=== PATIENT | male | born 1980 | race African-American/Black ===

== ENCOUNTER 2023-08-09 08:56 | Emergency (ER) | payer OTHER, SELFPAY ==
[2023-08-09 09:07] VITALS: BP 169/116; PULSE 76; RESP 20; TEMP 36.4; O2SAT 100
[2023-08-09] MEDS: SODIUM CHLORIDE 0.9% IV 1,000 ML 999 ML IV CONT (10:43)
[2023-08-09 10:46] LABS: Basophils Percent Auto 0.3 % (0.2-1.2); Eosinophils Absolute Auto 0.1 K/mm3 (0-0.3); Eosinophils Percent Auto 1.9 % (0-4.4); Hematocrit 47.3 % (42.0-52.0); Hemoglobin 15.3 g/dL (14.0-18.0); Immature Granulocyte Absolute 0.01 K/mm3 (0.00-0.031); Immature Granulocyte Percent A 0.2 % (0-0.5); Lymphocytes Absolute Auto 2.27 K/mm3 (0.9-3.2); Lymphocytes Percent Auto 38.9 % (18.3-44.2); Mean Corpuscular HGB Conc 32.3 g/dl (32-36); Mean Corpuscular Hemoglobin 27.3 pg (26-34); Mean Corpuscular Volume 84.3 fl (80-100); Mean Platelet Volume 10.1 fl (7.4-10.4); Monocytes Absolute Auto 0.4 K/mm3 (0.1-0.6); Monocytes Percent Auto 7.2 % (2.6-8.5); Neutrophils Percent Auto 51.5 % (45.5-73.1); Platelet Count Result 244 k/mm3 (150-375); Red Blood Count 5.61 M/mm3 (4.6-6.20); Red Cell Distribution Width 13.6 % (11.5-14.5); White Blood Count 5.8 K/mm3 (4.5-10.0)
[2023-08-09 11:23] LABS: Alanine Aminotransferase 29 U/L (6-50); Albumin Level 4.2 g/dL (3.5-5.1); Alkaline Phosphatase 89 U/L (38-126); Anion Gap 3 mmol/L (8-16); Aspartate Amino Transferase 33 U/L (17-59); Bilirubin,Total 0.7 mg/dL (0.2-1.3); Blood Urea Nitrogen 12 mg/dL (9-20); Calcium 9.5 mg/dL (8.4-10.2); Carbon Dioxide 31 mmol/L (22-30); Chloride 104 mmol/L (98-107); Estimated CRCL calculation 134 ml/min; Estimated Glomerular Filt Rate > 60; Glucose 265 mg/dL (65-110); Sodium 138 mmol/L (137-145)
--- NOTE | 2023-08-09 12:12 | ED.GENADULT ---
HPI - General Adult General Chief complaint: Unspecified Stated complaint: med refill Time Seen by Provider: 08/09/23 09:07 History of Present Illness HPI narrative: Pt presents with elevated blod sugar. Pt says he is just about out of his insulin and needs refill. Pt says his girlfriend is trying to get him into her PCP but does not have appointment yet. Pt denies symptoms just wants insulin refilled. Related Data Home Medications Medication Instructions Recorded Confirmed insulin glargine 100 unit/mL unit subcut 08/09/23 subcutaneous cartridge insulin pen,reusable,BT,lispro 08/09/23 08/09/23 Allergies Allergy/AdvReac Type Severity Reaction Status Date / Time No Known Allergies Allergy Verified 08/09/23 09:11 Review of Systems Review of Systems: All systems reviewed & are unremarkable except as noted in HPI and below Exam Const: General: cooperative, healthy appearing, comfortable, no acute distress, well developed and Physically active Orientation/consciousness: patient oriented x3 Limitations: no limitations HENMT: Head: normal to inspection Mouth: Yes moist mucous membranes abnormal Neck: Neck: normal visual inspection and full ROM Resp: Effort & Inspection: normal respiratory effort Auscultation: clear to auscultation bilaterally Cardio: Rate: regular rate Rhythm: regular rhythm GI: Inspection: normal to inspection Auscultation: normal bowel sounds Skin: General skin exam: normal color and no rashes or lesions noted Neuro: General: patient oriented x3 and moves all extremities Cranial nerves: Yes CN's II-XII intact bilaterally Cognition (Neuro): normal cognition Speech: normal speech Extrem: General: normal to inspection Psych: Appearance: grossly normal Mental Status: mental status grossly normal Speech and movement: Normal speech and movement present Affect: normal affect Attitude: cooperative Thought process: Normal thought process present Insight: Good insight present (Psych) Judgement: Good judgement present (Psych) Course Vital Signs Vital signs: Vital Signs Temperature 97.6 F 08/09/23 09:07 Pulse Rate 76 08/09/23 09:07 Respiratory Rate 20 08/09/23 09:07 Blood Pressure 169/116 H 08/09/23 09:07 Pulse Oximetry 100 08/09/23 09:07 Oxygen Delivery Room Air 08/09/23 09:07 Temperature 97.6 F 08/09/23 09:07 Pulse Rate 73 08/09/23 12:57 Respiratory Rate 20 08/09/23 12:57 Blood Pressure 170/97 H 08/09/23 12:57 Pulse Oximetry 99 08/09/23 12:57 Oxygen Delivery Room Air 08/09/23 09:07 Medical Decision Making MDM Narrative Medical decision making narrative: Pt has had mild blood sugar elevation and is nearly out of his insulin and does not have PCP yet. Pt want refill of insulin. will check labs to be sure not in dka or electolye issues or kidney failure then can refill and arrange folow up. labs look ok will send home on insulin and follow up. Vital Signs Vital Signs: Vital Signs Temperature 97.6 F 08/09/23 09:07 Pulse Rate 76 08/09/23 09:07 Respiratory Rate 20 08/09/23 09:07 Blood Pressure 169/116 H 08/09/23 09:07 Pulse Oximetry 100 08/09/23 09:07 Oxygen Delivery Room Air 08/09/23 09:07 Temperature 97.6 F 08/09/23 09:07 Pulse Rate 73 08/09/23 12:57 Respiratory Rate 20 08/09/23 12:57 Blood Pressure 170/97 H 08/09/23 12:57 Pulse Oximetry 99 08/09/23 12:57 Oxygen Delivery Room Air 08/09/23 09:07 Lab Data 08/09/23 10:38 08/09/23 11:04 Labs: Lab Results 08/09/23 08/09/23 08/09/23 Range/Units 10:38 11:04 12:21 WBC 5.8 (4.5-10.0) K/mm3 RBC 5.61 (4.6-6.20) M/mm3 Hgb 15.3 (14.0-18.0) g/dL Hct 47.3 (42.0-52.0) % MCV 84.3 (80-100) fl MCH 27.3 (26-34) pg MCHC 32.3 (32-36) g/dl RDW 13.6 (11.5-14.5) % Plt Count 244 (150-375) k/mm3 MPV 10.1 (7.4-10.4) fl Immature Gran % (Auto) 0.2 (0-0.5) %
[2023-08-09 12:23] LABS: Glucose Point of Care 233 mg/dl (65-105)
--- NOTE | 2023-08-09 12:23 | PC.NURSE ---
BG taken at this time, result was 233
[2023-08-09 12:57] VITALS: BP 170/97; PULSE 73; RESP 20; O2SAT 99
== END 2023-08-09 13:02 | disposition home or self-care (01) ==
PROVIDERS: Emergency Provider Emergency Medicine; Referring Provider Emergency Medicine
DX: E11.65 Type 2 diabetes mellitus with hyperglycemia (principal); Z79.4 Long term (current) use of insulin
CPT/HCPCS: 36415; 80053; 82948; 85025; 96360; 99283; J7030

== ENCOUNTER 2024-06-06 16:03 | Inpatient (IN) | payer OTHER, SELFPAY ==
--- NOTE | ~2024-06-06 | CT_ITS ---
EXAMINATION: CTA brain carotid DATE: 06/06/2024 18:53 [employer] INDICATION: Dizziness. Gait disturbance. TECHNIQUE: Computed tomographic angiography (CTA) of the head was performed with 100 mL Omnipaque-350 intravenous contrast. CTA of the neck was performed with intravenous contrast. The dose-length produ ct was 1257.44 mGy-cm. Maximum intensity projection and volume rendered 3D-reconstructions were creat ed by the technologist on a separate workstation. COMPARISON: CT dated 06/06/2024 FINDINGS: HEAD CTA: The anterior, middle and posterior cerebral arteries are symmetric. No evidence for signifi cant stenosis, occlusion or aneurysm. No vascular anomalies are identified. NECK CTA: Visualized aspects of the aorta are unremarkable. Great vessels are intact without evidence for significant stenosis. The internal and external carotid arteries are within normal limits withou t significant stenosis. Thyroid gland is unremarkable. No significant thoracic lymphadenopathy. Airwa y is patent. Visualized aspects of the lung parenchyma are unremarkable. There is 0% stenosis of the proximal right internal carotid artery relative to normal distal artery l umen diameter (NASCET criteria). There is 0% stenosis of the proximal left internal carotid artery re lative to normal distal artery lumen diameter. IMPRESSION: 1: No significant vascular abnormality of the head or neck. Reviewed, dictated and finalized at location A. [employer]ING LEAD OPERATOR
--- NOTE | ~2024-06-06 | CT_ITS ---
EXAMINATION: CT BRAIN W/O DATE: 06/06/2024 17:28 INDICATION: Headache TECHNIQUE: Computed tomography (CT) of the head was performed without intravenous contrast. The dose- length product was 681.00 mGy-cm. CORD dose COMPARISON: No prior studies for comparison. FINDINGS: Normal brain parenchymal volume for age. Normal hope-white differentiation. No acute intrac ranial hemorrhage, infarction, mass or mass effect. No ventriculomegaly or midline shift. Midline sagittal images demonstrate a normal corpus callosum, c raniovertebral junction and sella turcica. Basilar cisterns are patent. Paranasal sinuses and mastoids are pneumatized. No depressed skull fractures. IMPRESSION: 1. No acute intracranial abnormality. Reviewed, dictated and finalized at location A. CTURAL ENGINEER
--- NOTE | ~2024-06-06 | XR_ITS ---
XR chest 2V Ordering provider: Damon Barrios MD History: 44 years Male with . weakness . Comparison: None. FINDINGS: MEDIASTINUM: The cardiac silhouette is not enlarged. LUNGS: No infiltrates, effusions or pneumothorax. OTHER: No free air under the diaphragm. IMPRESSION: No acute cardiopulmonary pathology. Reviewed, dictated and finalized at location A. ADJUSTER
[2024-06-06 16:19] VITALS: BP 140/106; PULSE 99; RESP 18; TEMP 36.8; O2SAT 100
[2024-06-06 16:24] LABS: Glucose Point of Care 283 mg/dl (65-105)
--- NOTE | 2024-06-06 16:29 | ECG_ITS ---
Test Date: 2024-06-06 16:34:40 Measurements Intervals [place] Rate: 100 P: 83 SC: 155 QRS: -24 QRSD: 87 T: 29 QT: 314 QTc: 405 Interpretive Statements SINUS TACHYCARDIA POSSIBLE LEFT ATRIAL ENLARGEMENT [-0.1mV P WAVE IN V1/V2] BORDERLINE LEFT AXIS DEVIATION [QRS AXIS < -20] NONSPECIFIC ST AND T WAVE ABNORMALITY No previous ECG available for comparison Electronically Signed On 06-07-2024 14:24:41 [employer]PUT[employer]IST by Kimberli Orellana M.D.
--- NOTE | 2024-06-06 16:42 | ED.WEAKNESS ---
HPI - Weakness General Chief complaint: Weakness <Huma AnthonyNoel Robin CUSTOMER SUPPORT PROFESSIONAL - Last Filed: 06/06/24 16:48> Stated complaint: WEAKNESS, HX OF DIABETES <Huma Alexandria Robin APRN - Last Filed: 06/06/24 16:48> Time Seen by Provider: 06/06/24 16:30 <Huma Ibrahim Lobito CUSTOMER SUPPORT PROFESSIONAL - Last Filed: 06/06/24 16:48> Focused HPI: Patient is an skin [place] male who presents to the ER with complaints of weakness, falls x3, severe headache, shortness breath, and vomiting. He reports symptoms started about 1 p.m. today. Patient reports he feels weak which caused him to fall 3 times. He endorses a history of diabetes and hypertension. Patient wears a Dexcom and reports his glucose is in the 230s currently. He denies any recent fevers, abdominal pain, urinary symptoms. GENERAL: Well-appearing, well-nourished, and in no acute distress. HEAD: Normocephalic, atraumatic. CHEST: Clear to auscultation. ?No respiratory distress. HEART: Regular rate and rhythm.? NEURO: ?Alert and oriented x3. Patient screened in triage and initial orders placed.? ?Additional care and disposition to be based upon?diagnostic testing and treatment. <Huma AnthonyNoel Robin CUSTOMER SUPPORT PROFESSIONAL - Last Filed: 06/06/24 16:48> Focused HPI: Patient is an male who presents to the ER with complaints of weakness, falls x3, severe headache, and vomiting. He reports symptoms started about 1 p.m. today. Patient reports he feels weak which caused him to fall 3 times. He endorses a history of diabetes and hypertension. Patient wears a Dexcom and reports his glucose is in the 230s currently. He denies any recent fevers, abdominal pain, urinary symptoms. GENERAL: Well-appearing, well-nourished, and in no acute distress. HEAD: Normocephalic, atraumatic. CHEST: Clear to auscultation. ?No respiratory distress. HEART: Regular rate and rhythm.? NEURO: ?Alert and oriented x3. Patient screened in triage and initial orders placed.? ?Additional care and disposition to be based upon?diagnostic testing and treatment. <Rica Wyatt PA-C - Last Filed: 06/06/24 21:23> Related Data Allergies/Adverse reactions: Allergies Allergy/AdvReac Type Severity Reaction Status Date / Time No Known Allergies Allergy Verified 06/04/24 11:19 <Huma Robin APRN - Last Filed: 06/06/24 16:48> Review of Systems Review of Systems: CONSTITUTIONAL: Denies fever EYES: Denies visual changes CARDIOVASCULAR: Denies chest pain or edema. RESPIRATORY: Denies dyspnea. GASTROINTESTINAL: Reports vomiting NEUROLOGIC: Reports headache. Denies numbness, or weakness. <Rica Wyatt PA-C - Last Filed: 06/06/24 21:23> All systems reviewed & are unremarkable except as noted in HPI and below <Rica Wyatt PA-C - Last Filed: 06/06/24 21:23> PMFSH Past Medical History Medical History: Medical History (Updated 06/06/24 @ 21:15 by Rica Wyatt PA-C) History of hyperlipidemia History of hypertension History of diabetes mellitus <Huma Robin APRN - Last Filed: 06/06/24 16:48> Family History Family History: Family History (Updated 06/04/24 @ 11:06 by Raina Kerr CMA) Sibling Hypertension Renal disease Father Cerebrovascular accident Diabetes mellitus Hypertension Mother Diabetes mellitus Hypertension <Huma Robin APRN - Last Filed: 06/06/24 16:48> Social History Social History: Social History (Updated 06/04/24 @ 11:18 by Lennie Miranda MA) Smoking status: Never smoker Alcohol intake: current Substance use: never Do You Feel Safe in your Home?: Yes Lack of Transportation: No Lack of Food: Sometimes True Current Housing: I Have Housing Concerned About Future Housing: No Difficulty Paying Gas/Electric Bills: No Difficulty Paying for Meds: No Currently Unemployed: YES Education: Decline to Answer Difficulty w/ Childcare or Family Care: No Gender identity (if verbalized by the patient): Male <Huma Robin APRN - Last Filed: 06/06/24 16:48> Exam Narrative: GENERAL: Well-appearing, well-nourished, and in no acute distress. HEAD: Normocephalic, atraumatic. EYES: PERRLA and EOMI. ENT: Nares clear, no rhinorrhea or epistaxis. Mucous membranes moist. Oropharynx without tonsillar hypertrophy exudate or other lesions. Bilateral TMs pearly hope non-bulging NECK: Supple. No adenopathy or masses. No JVD CHEST: Clear to auscultation. No respiratory distress. No wheezes rales or rhonchi HEART: Regular rate and rhythm. No murmur heard. Normal peripheral pulses. EXTREMITIES: Normal range of motion. No edema. Strength equal in bilateral upper and lower extremities (5/5) SKIN: Warm, dry, no rash. NEURO: No focal deficits. Alert and oriented x3. Cranial nerves 2-12 grossly intact. Normal [id number] PSYCH: Normal mood and affect <Rica Wyatt PA-C - Last Filed: 06/06/24 21:23> Course Course Emergency Course: Patient updated on his workup. Does endorse some continued dizziness, headache. Will be admitted for further observation <SUSAN Parson Last Filed: 06/06/24 21:23> Consultations Consultation #1: Spoke with hospitalist about patient and workup who accepts admission. Would like patient started on IV antibiotics for possible UTI <SUSAN Parson Last Filed: 06/06/24 21:23> Date: 06/06/24 <SUSAN Parson Last Filed: 06/06/24 21:23> Vital Signs Vital signs: Vital Signs Temperature 98.3 F 06/06/24 16:19 Pulse Rate 99 06/06/24 16:19 Respiratory Rate 18 06/06/24 16:19 Blood Pressure 140/106 H 06/06/24 16:19 Pulse Oximetry 100 06/06/24 16:19 Oxygen Delivery Room Air 06/06/24 16:19 Temperature 98.3 F 06/06/24 16:19 Pulse Rate 80 06/06/24 19:46 Respiratory Rate 18 06/06/24 19:46 Blood Pressure 142/97 H 06/06/24 19:46 Pulse Oximetry 100 06/06/24 19:46 Oxygen Delivery Room Air 06/06/24 16:19 <Huma Robin APRN - Last Filed: 06/06/24 16:48> Vital Signs Temperature 98.3 F 06/06/24 16:19 Pulse Rate 99 06/06/24 16:19 Respiratory Rate 18 06/06/24 16:19 Blood Pressure 140/106 H 06/06/24 16:19 Pulse Oximetry 100 06/06/24 16:19 Oxygen Delivery Room Air 06/06/24 16:19 Temperature 98.3 F 06/06/24 16:19 Pulse Rate 80 06/06/24 19:46 Respiratory Rate 18 06/06/24 19:46 Blood Pressure 142/97 H 06/06/24 19:46 Pulse Oximetry 100 06/06/24 19:46 Oxygen Delivery Room Air 06/06/24 16:19 <Rica Wyatt PA-C - Last Filed: 06/06/24 21:23> MDM - Weakness MDM Narrative Medical decision making narrative: Patient presents to the emergency department for dizziness, generalized weakness. He is afebrile and nontoxic appearing. His vitals are stable. Cbc without concerning findings. Metabolic panel with evidence of dehydration with anion gap of 13, bicarb is normal. Urine also with evidence of dehydration. Possible UTI. This will be sent for culture. Influenza, RSV and COVID screens are negative. Chest x-ray without acute findings. CT brain without acute intracranial abnormality. CTA brain and carotid obtained for further evaluation. No acute findings. Patient updated on his workup. Does endorse some continued dizziness, headache. Will be admitted for further observation. Spoke with hospitalist about patient and workup who accepts admission. Would like patient started on IV antibiotics for possible UTI <Rica Wyatt PA-C - Last Filed: 06/06/24 21:23> Differential Diagnosis Differential diagnosis: Likely dehydration and other (DKA, BPPV, CVA, anemia, infection) <Rica Wyatt PA-C - Last Filed: 06/06/24 21:23> Lab Data Attestation: I reviewed the patient's lab results. <Rica Wyatt PA-C - Last Filed: 06/06/24 21:23> Result diagrams: 06/06/24 16:35 06/06/24 20:37 <Huma Robin APRN - Last Filed: 06/06/24 16:48> Labs: Lab Results 06/06/24 06/06/24 06/06/24 Range/Units 16:22 16:35 17:08 WBC 9.4 (4.5-10.0) K/mm3 RBC 5.56 (4.6-6.20) M/mm3 Hgb 15.5 (14.0-18.0) g/dL Hct 45.8 (42.0-52.0) % MCV 82.4 (80-100) fl MCH 27.9 (26-34) pg MCHC 33.8 (32-36) g/dl RDW 13.9 (11.5-14.5) % Plt Count 280 (150-375) k/mm3 MPV 10.6 H (7.4-10.4) fl Immature Gran % (Auto) 0.2 (0-0.5) % Neut % (Auto) 60.1 (45.5-73.1) % Lymph % (Auto) 32.3 (18.3-44.2) % [place] % (Auto) 7.0 (2.6-8.5) % Eos % (Auto) 0.1 (0-4.4) % Baso % (Auto) 0.3 (0.2-1.2) % Lymph # (Auto) 3.04 (0.9-3.2) K/mm3 [place] # (Auto) 0.7 H (0.1-0.6) K/mm3 Eos # (Auto) 0.0 (0-0.3) K/mm3 Baso # (Auto) 0.0 (0.0-0.1) K/mm3 Abs Immat Gran (auto) 0.02 (0.00-0.031) K/mm3 Absolute Neuts (auto) 5.7 (1.3-6.7) K/mm3 Absolute Nucleated RBC 0.000 (0.0-0.012) K/mm3 Nucleated RBC % 0.0 (0.0-0.2) % Sodium 138 (137-145) mmol/L Potassium 3.6 (3.4-5.0) mmol/L Chloride 101 (98-107) mmol/L Carbon Dioxide 24 (22-30) mmol/L Anion Gap 13 H (4-12) mmol/L BUN 13 (9-20) mg/dL Creatinine 1.14 (0.7-1.3) mg/dL Estim Creat Clear Calc 85 ml/min Estimated GFR > 60 (59 - ) Glucose 249 H (65-110) mg/dL POC Capillary Glucose 283 H (65-105) mg/dl Calcium 10.0 (8.4-10.2) mg/dL Total Bilirubin 0.9 (0.2-1.3) mg/dL AST 27 (17-59) U/L ALT 19 (6-50) U/L Alkaline Phosphatase 88 (38-126) U/L Total Creatine Kinase 170 (55-170) U/L Total Protein 9.0 H (6.3-8.2) g/dL Albumin 4.5 (3.5-5.1) g/dL Beta-Hydroxybutyrate/Acetoacetate 1.86 H (0.02-0.27) mmol/L Urine Color (Yellow) Urine Appearance (Clear) Urine pH (5.0-9.0) Ur Specific [place] (1.001-1.035) Urine Protein (Negative) mg/dL Urine Glucose (UA) (Negative) mg/dL Urine Ketones (Negative) mg/dL Ur Blood (Man) (Negative) Urine Nitrate (Negative) Urine Bilirubin (Negative) Urine Urobilinogen (<2.0) mg/dL Add Ur Microanalysis Leukocyte Esterase Rfl (Negative) AMERICO/UL Urine RBC (0-2) /hpf Urine WBC (0-3) /hpf Ur Squamous Epith Cells (Few) /hpf Urine Bacteria /hpf Urine Casts Hyaline Casts (None) /lpf Urine Mucus /lpf Urine Opiates Screen (Negative) Urine Methadone Screen (Negative) Ur Barbiturates Screen (Negative) Ur Phencyclidine Scrn (Negative) Ur Amphetamine Screen (Negative) U Benzodiazepines Scrn (Negative) Urine Cocaine Screen (Negative) U Cannabinoids Screen (Negative) Influenza A (RT-PCR) Negative (Negative) Influenza B (RT-PCR) Negative (Negative) RSV (RT-PCR) Negative (Negative) SARS-CoV-2 RNA (RT-PCR) Negative (Negative) 06/06/24 06/06/24 Range/Units 18:00 20:37 WBC (4.5-10.0) K/mm3 RBC (4.6-6.20) M/mm3 Hgb (14.0-18.0) g/dL Hct (42.0-52.0) % MCV (80-100) fl MCH (26-34) pg MCHC (32-36) g/dl RDW (11.5-14.5) % Plt Count (150-375) k/mm3 MPV (7.4-10.4) fl Immature Gran % (Auto) (0-0.5) % Neut % (Auto) (45.5-73.1) % Lymph % (Auto) (18.3-44.2) % [place] % (Auto) (2.6-8.5) % Eos % (Auto) (0-4.4) % Baso % (Auto) (0.2-1.2) % Lymph # (Auto) (0.9-3.2) K/mm3 [place] # (Auto) (0.1-0.6) K/mm3 Eos # (Auto) (0-0.3) K/mm3 Baso # (Auto) (0.0-0.1) K/mm3 Abs Immat Gran (auto) (0.00-0.031) K/mm3 Absolute Neuts (auto) (1.3-6.7) K/mm3 Absolute Nucleated RBC (0.0-0.012) K/mm3 Nucleated RBC % (0.0-0.2) % Sodium 137 (137-145) mmol/L Potassium 3.5 (3.4-5.0) mmol/L Chloride 105 (98-107) mmol/L Carbon Dioxide 25 (22-30) mmol/L Anion Gap 7 (4-12) mmol/L BUN 11 (9-20) mg/dL Creatinine 0.95 (0.7-1.3) mg/dL Estim Creat Clear Calc 101 ml/min Estimated GFR > 60 (59 - ) Glucose 198 H (65-110) mg/dL POC Capillary Glucose (65-105) mg/dl Calcium 8.8 (8.4-10.2) mg/dL Total Bilirubin 0.8 (0.2-1.3) mg/dL AST 21 (17-59) U/L ALT 14 (6-50) U/L Alkaline Phosphatase 81 (38-126) U/L Total Creatine Kinase (55-170) U/L Total Protein 7.0 (6.3-8.2) g/dL Albumin 3.8 (3.5-5.1) g/dL Beta-Hydroxybutyrate/Acetoacetate (0.02-0.27) mmol/L Urine Color Dark yellow (Yellow) Urine Appearance Cloudy H (Clear) Urine pH 5.5 (5.0-9.0) Ur Specific [place] 1.023 (1.001-1.035) Urine Protein 2+ H (Negative) mg/dL Urine Glucose (UA) 2+ H (Negative) mg/dL Urine Ketones 3+ H (Negative) mg/dL Ur Blood (Man) Negative (Negative) Urine Nitrate Negative (Negative) Urine Bilirubin Negative (Negative) Urine Urobilinogen 1.0 (<2.0) mg/dL Add Ur Microanalysis Reviewed Leukocyte Esterase Rfl Negative (Negative) AMERICO/UL Urine RBC 0-2 (0-2) /hpf Urine WBC 6-10 H (0-3) /hpf Ur Squamous Epith Cells Many H (Few) /hpf Urine Bacteria None seen /hpf Urine Casts >20 Hyaline Casts Present (None) /lpf Urine Mucus Present /lpf Urine Opiates Screen Negative (Negative) Urine Methadone Screen Negative (Negative) Ur Barbiturates Screen Negative (Negative) Ur Phencyclidine Scrn Negative (Negative) Ur Amphetamine Screen Negative (Negative) U Benzodiazepines Scrn Negative (Negative) Urine Cocaine Screen Negative (Negative) U Cannabinoids Screen Positive A (Negative) Influenza A (RT-PCR) (Negative) Influenza B (RT-PCR) (Negative) RSV (RT-PCR) (Negative) SARS-CoV-2 RNA (RT-PCR) (Negative) <Huma Robin, CUSTOMER SUPPORT PROFESSIONAL - Last Filed: 06/06/24 16:48> Lab Results 06/06/24 06/06/24 06/06/24 Range/Units 16:22 16:35 17:08 WBC 9.4 (4.5-10.0) K/mm3 RBC 5.56 (4.6-6.20) M/mm3 Hgb 15.5 (14.0-18.0) g/dL Hct 45.8 (42.0-52.0) % MCV 82.4 (80-100) fl MCH 27.9 (26-34) pg MCHC 33.8 (32-36) g/dl RDW 13.9 (11.5-14.5) % Plt Count 280 (150-375) k/mm3 MPV 10.6 H (7.4-10.4) fl Immature Gran % (Auto) 0.2 (0-0.5) % Neut % (Auto) 60.1 (45.5-73.1) % Lymph % (Auto) 32.3 (18.3-44.2) % [place] % (Auto) 7.0 (2.6-8.5) % Eos % (Auto) 0.1 (0-4.4) % Baso % (Auto) 0.3 (0.2-1.2) % Lymph # (Auto) 3.04 (0.9-3.2) K/mm3 [place] # (Auto) 0.7 H (0.1-0.6) K/mm3 Eos # (Auto) 0.0 (0-0.3) K/mm3 Baso # (Auto) 0.0 (0.0-0.1) K/mm3 Abs Immat Gran (auto) 0.02 (0.00-0.031) K/mm3 Absolute Neuts (auto) 5.7 (1.3-6.7) K/mm3 Absolute Nucleated RBC 0.000 (0.0-0.012) K/mm3 Nucleated RBC % 0.0 (0.0-0.2) % Sodium 138 (137-145) mmol/L Potassium 3.6 (3.4-5.0) mmol/L Chloride 101 (98-107) mmol/L Carbon Dioxide 24 (22-30) mmol/L Anion Gap 13 H (4-12) mmol/L BUN 13 (9-20) mg/dL Creatinine 1.14 (0.7-1.3) mg/dL Estim Creat Clear Calc 85 ml/min Estimated GFR > 60 (59 - ) Glucose 249 H (65-110) mg/dL POC Capillary Glucose 283 H (65-105) mg/dl Calcium 10.0 (8.4-10.2) mg/dL Total Bilirubin 0.9 (0.2-1.3) mg/dL AST 27 (17-59) U/L ALT 19 (6-50) U/L Alkaline Phosphatase 88 (38-126) U/L Total Creatine Kinase 170 (55-170) U/L Total Protein 9.0 H (6.3-8.2) g/dL Albumin 4.5 (3.5-5.1) g/dL Beta-Hydroxybutyrate/Acetoacetate 1.86 H (0.02-0.27) mmol/L Urine Color (Yellow) Urine Appearance (Clear) Urine pH (5.0-9.0) Ur Specific [place] (1.001-1.035) Urine Protein (Negative) mg/dL Urine Glucose (UA) (Negative) mg/dL Urine Ketones (Negative) mg/dL Ur Blood (Man) (Negative) Urine Nitrate (Negative) Urine Bilirubin (Negative) Urine Urobilinogen (<2.0) mg/dL Add Ur Microanalysis Leukocyte Esterase Rfl (Negative) AMERICO/UL Urine RBC (0-2) /hpf Urine WBC (0-3) /hpf Ur Squamous Epith Cells (Few) /hpf Urine Bacteria /hpf Urine Casts Hyaline Casts (None) /lpf Urine Mucus /lpf Urine Opiates Screen (Negative) Urine Methadone Screen (Negative) Ur Barbiturates Screen (Negative) Ur Phencyclidine Scrn (Negative) Ur Amphetamine Screen (Negative) U Benzodiazepines Scrn (Negative) Urine Cocaine Screen (Negative) U Cannabinoids Screen (Negative) Influenza A (RT-PCR) Negative (Negative) Influenza B (RT-PCR) Negative (Negative) RSV (RT-PCR) Negative (Negative) SARS-CoV-2 RNA (RT-PCR) Negative (Negative) 06/06/24 06/06/24 Range/Units 18:00 20:37 WBC (4.5-10.0) K/mm3 RBC (4.6-6.20) M/mm3 Hgb (14.0-18.0) g/dL Hct (42.0-52.0) % MCV (80-100) fl MCH (26-34) pg MCHC (32-36) g/dl RDW (11.5-14.5) % Plt Count (150-375) k/mm3 MPV (7.4-10.4) fl Immature Gran % (Auto) (0-0.5) % Neut % (Auto) (45.5-73.1) % Lymph % (Auto) (18.3-44.2) % [place] % (Auto) (2.6-8.5) % Eos % (Auto) (0-4.4) % Baso % (Auto) (0.2-1.2) % Lymph # (Auto) (0.9-3.2) K/mm3 [place] # (Auto) (0.1-0.6) K/mm3 Eos # (Auto) (0-0.3) K/mm3 Baso # (Auto) (0.0-0.1) K/mm3 Abs Immat Gran (auto) (0.00-0.031) K/mm3 Absolute Neuts (auto) (1.3-6.7) K/mm3 Absolute Nucleated RBC (0.0-0.012) K/mm3 Nucleated RBC % (0.0-0.2) % Sodium 137 (137-145) mmol/L Potassium 3.5 (3.4-5.0) mmol/L Chloride 105 (98-107) mmol/L Carbon Dioxide 25 (22-30) mmol/L Anion Gap 7 (4-12) mmol/L BUN 11 (9-20) mg/dL Creatinine 0.95 (0.7-1.3) mg/dL Estim Creat Clear Calc 101 ml/min Estimated GFR > 60 (59 - ) Glucose 198 H (65-110) mg/dL POC Capillary Glucose (65-105) mg/dl Calcium 8.8 (8.4-10.2) mg/dL Total Bilirubin 0.8 (0.2-1.3) mg/dL AST 21 (17-59) U/L ALT 14 (6-50) U/L Alkaline Phosphatase 81 (38-126) U/L Total Creatine Kinase (55-170) U/L Total Protein 7.0 (6.3-8.2) g/dL Albumin 3.8 (3.5-5.1) g/dL Beta-Hydroxybutyrate/Acetoacetate (0.02-0.27) mmol/L Urine Color Dark yellow (Yellow) Urine Appearance Cloudy H (Clear) Urine pH 5.5 (5.0-9.0) Ur Specific [place] 1.023 (1.001-1.035) Urine Protein 2+ H (Negative) mg/dL Urine Glucose (UA) 2+ H (Negative) mg/dL Urine Ketones 3+ H (Negative) mg/dL Ur Blood (Man) Negative (Negative) Urine Nitrate Negative (Negative) Urine Bilirubin Negative (Negative) Urine Urobilinogen 1.0 (<2.0) mg/dL Add Ur Microanalysis Reviewed Leukocyte Esterase Rfl Negative (Negative) AMERICO/UL Urine RBC 0-2 (0-2) /hpf Urine WBC 6-10 H (0-3) /hpf Ur Squamous Epith Cells Many H (Few) /hpf Urine Bacteria None seen /hpf Urine Casts >20 Hyaline Casts Present (None) /lpf Urine Mucus Present /lpf Urine Opiates Screen Negative (Negative) Urine Methadone Screen Negative (Negative) Ur Barbiturates Screen Negative (Negative) Ur Phencyclidine Scrn Negative (Negative) Ur Amphetamine Screen Negative (Negative) U Benzodiazepines Scrn Negative (Negative) Urine Cocaine Screen Negative (Negative) U Cannabinoids Screen Positive A (Negative) Influenza A (RT-PCR) (Negative) Influenza B (RT-PCR) (Negative) RSV (RT-PCR) (Negative) SARS-CoV-2 RNA (RT-PCR) (Negative) <Rica Wyatt PA-C - Last Filed: 06/06/24 21:23> Imaging Data Radiologist's impression: ITS Impressions Chest X-Ray 06/06/24 16:51 IMPRESSION: No acute cardiopulmonary pathology. Head CT 06/06/24 17:35 IMPRESSION: 1. No acute intracranial abnormality. Head/Neck CTA 06/06/24 18:53 IMPRESSION: 1: No significant vascular abnormality of the head or neck. <SUSAN Parson Last Filed: 06/06/24 21:23> ECG Data EKG #1: ECG completion date: 06/06/24 <SUSAN Parson Last Filed: 06/06/24 21:23> EKG Interpretation: normal rate, sinus rhythm, ST elevation (with normally inflected T waves) and normal QT <SUSAN Parson Last Filed: 06/06/24 21:23> Critical Care Time Critical Care Time Critical Care Time: No <SUSAN Parson Last Filed: 06/06/24 21:23> Discharge Plan Discharge Clinical Impression: Dizziness, Dehydration, Diabetes mellitus <Huma Robin, CUSTOMER SUPPORT PROFESSIONAL - Last Filed: 06/06/24 16:48> Patient Disposition: Still a Patient <Huma Robin CUSTOMER SUPPORT PROFESSIONAL - Last Filed: 06/06/24 16:48> Condition: Stable <Huma Robin, CUSTOMER SUPPORT PROFESSIONAL - Last Filed: 06/06/24 16:48> Patient Language: German <Huma Robin, CUSTOMER SUPPORT PROFESSIONAL - Last Filed: 06/06/24 16:48> Prescriptions: No Action insulin glargine [Lantus Solostar U-100 Insulin] 100 unit/mL (3 mL) insulin pen 20 unit subcut QAM Qty: 3 0RF (DME) Dexcom G7 [employer] Misc See Rx Instructions .ROUTE .MEDSUPPLY Qty: 1 0RF Rx Instructions: Will use smartphone ([facility] [place]) Dexcom G7 Sensor Device See Rx Instructions .ROUTE .MEDSUPPLY Qty: 9 3RF Rx Instructions: Use to monitor glcuose Gvoke HypoPen 2-Pack 1 mg/0.2 mL auto-injector 1 mg subcut ONCE Qty: 0.4 4RF Rx Instructions: may repeat once after 15 minutes if no response glucose [Dex4 Glucose] 4 gram tablet,chewable 16 g PO Q15M PRN (Reason: hypoglycemia) Qty: 60 1RF Rx Instructions: until symptoms of low blood sugar are controlled (DME) urine glucose-ketones test Strip See Rx Instructions .ROUTE .MEDSUPPLY Qty: 50 0RF Rx Instructions: As directed (DME) lancets [OneTouch Delica Plus Lancet] 33 gauge misc See Rx Instructions .ROUTE .MEDSUPPLY Qty: 100 0RF Rx Instructions: Check glcuose (DME) OneTouch Ultra Test Strip See Rx Instructions .ROUTE .MEDSUPPLY Qty: 100 0RF Rx Instructions: Check glucose 1-2 times a day (DME) blood-glucose meter [OneTouch Verio Flex Start] Kit See Rx Instructions .Route Qty: 1 0RF Rx Instructions: As directed insulin lispro [Humalog KwikPen Insulin] 100 unit/mL insulin pen 5 unit subcut TIDWMEAL MDD 33 Qty: 15 2RF Rx Instructions: Take 5 units premeal + SSI 150-200: 1 unit 201-250: 2 units 251-300: 3 units 301-350: 4 units 351-400: 5 units >401: 6 unit <Huma Robin APRN - Last Filed: 06/06/24 16:48> Follow-up/Referrals: UNKNOWN,DOCTOR [Primary Care Provider] - <Huma Robin APRN - Last Filed: 06/06/24 16:48>
[2024-06-06 16:43] LABS: Basophils Percent Auto 0.3 % (0.2-1.2); Eosinophils Percent Auto 0.1 % (0-4.4); Hematocrit 45.8 % (42.0-52.0); Hemoglobin 15.5 g/dL (14.0-18.0); Immature Granulocyte Absolute 0.02 K/mm3 (0.00-0.031); Immature Granulocyte Percent A 0.2 % (0-0.5); Lymphocytes Absolute Auto 3.04 K/mm3 (0.9-3.2); Lymphocytes Percent Auto 32.3 % (18.3-44.2); Mean Corpuscular HGB Conc 33.8 g/dl (32-36); Mean Corpuscular Hemoglobin 27.9 pg (26-34); Mean Corpuscular Volume 82.4 fl (80-100); Mean Platelet Volume 10.6 fl (7.4-10.4); Monocytes Absolute Auto 0.7 K/mm3 (0.1-0.6); Neutrophils Absolute Auto 5.7 K/mm3 (1.3-6.7); Neutrophils Percent Auto 60.1 % (45.5-73.1); Platelet Count Result 280 k/mm3 (150-375); Red Blood Count 5.56 M/mm3 (4.6-6.20); Red Cell Distribution Width 13.9 % (11.5-14.5); White Blood Count 9.4 K/mm3 (4.5-10.0)
--- NOTE | 2024-06-06 16:46 | ECG_ITS ---
Test Date: 2024-06-06 17:08:01 Measurements Intervals [place] Rate: 95 P: 81 RI: 154 QRS: -31 QRSD: 97 T: 29 QT: 321 QTc: 405 Interpretive Statements SINUS RHYTHM MARKED LEFT AXIS DEVIATION [QRS AXIS < -30] NONSPECIFIC ST AND T WAVE ABNORMALITY Compared to ECG 06/06/2024 16:34:40 NO SIGNIFICANT CAHNGES Electronically Signed On 06-07-2024 14:26:38 [employer] OFFBEARER by Kimberli Orellana M.D.
[2024-06-06 16:56] LABS: Alanine Aminotransferase 19 U/L (6-50); Albumin Level 4.5 g/dL (3.5-5.1); Alkaline Phosphatase 88 U/L (38-126); Anion Gap 13 mmol/L (4-12); Aspartate Amino Transferase 27 U/L (17-59); Bilirubin,Total 0.9 mg/dL (0.2-1.3); Blood Urea Nitrogen 13 mg/dL (9-20); Carbon Dioxide 24 mmol/L (22-30); Chloride 101 mmol/L (98-107); Estimated CRCL calculation 85 ml/min; Estimated Glomerular Filt Rate > 60; Glucose 249 mg/dL (65-110); Potassium 3.6 mmol/L (3.4-5.0); Sodium 138 mmol/L (137-145)
[2024-06-06 17:25] LABS: Beta-Hydroxybutyrate/Acetoacetate 1.86 mmol/L (0.02-0.27)
[2024-06-06 17:51] LABS: Influenza A QL RT-PCR Negative (Negative); Influenza B QL RT-PCR Negative (Negative); RSV RNA, RT-PCR Negative (Negative); SARS-CoV-2 RNA PCR Negative (Negative)
[2024-06-06 18:02] LABS: Creatine Kinase 170 U/L (55-170)
[2024-06-06] MEDS: SODIUM CHLORIDE 0.9% IV 1,000 ML 999 ML IV CONT ×2 (18:08→19:48)
[2024-06-06 18:09] VITALS: BP 139/98; PULSE 93; RESP 18; O2SAT 100
[2024-06-06] MEDS: ONDANSETRON INJ 4 MG/2 ML VIAL IV PUSH (18:19)
[2024-06-06] MEDS: MECLIZINE HCL 25 MG TABLET PO (18:19)
[2024-06-06 18:27] LABS: Add Urine Microscopic? YES; Appearance Urine Cloudy (Clear); Bacteria Urine None Seen /hpf; Bilirubin Urine Negative (Negative); Blood Urine Negative (Negative); Color Urine Dark Yellow (Yellow); Glucose Urine UA 2+ mg/dL (Negative); Hyaline Casts Urine Present /lpf; Ketones Urine 3+ mg/dL (Negative); Leukocyte Esterase Ur Negative LEU/UL (Negative); Mucus Urine Present /lpf; Need Manual Microscopic Reviewed; Nitrate Urine Negative (Negative); Non Pathogenic Casts >20; Protein Urine 2+ mg/dL (Negative); RBC Urine 0-2 /hpf (0-2); Specific Grav Ur 1.023 (1.001-1.035); Squamous Epithelial Cell Urine Many /hpf (Few); pH Urine 5.5 (5.0-9.0)
[2024-06-06 18:58] LABS: Amphetamine Screen Urine Negative (Negative); Barbiturate Screen Urine Negative (Negative); Benzodiazepines Screen Urine Negative (Negative); Cannabinoid Screen Urine Positive (Negative); Cocaine Screen Urine Negative (Negative); Methadone Screen Urine Negative (Negative); Opiate Screen Urine Negative (Negative); Phencyclidine Screen Urine Negative (Negative)
[2024-06-06 19:46] VITALS: BP 142/97; PULSE 80; RESP 18; O2SAT 100
--- NOTE | 2024-06-06 20:46 | PM.IMHP ---
H&P: HPI History of Present Illness Date/Time: 06/06/24 20:46 Chief Complaint: Weakness Narrative: This is a 44-year-old male with past medical history significant for type 1 diabetes mellitus, hypertension, dyslipidemia. Patient presents to the emergency room due to 2 days of dizziness, poor per orally intake, chills. Preliminary workup was significant for urinalysis with 6-10 WBCs present. Patient with beta hydroxybutyrate of 1.86 anion gap is 13 bicarb is 25. Patient has been admitted for further evaluation management and treatment. XR chest 2V Ordering provider: Damon Barrios MD History: 44 years Male with . weakness . Comparison: None. FINDINGS: MEDIASTINUM: The cardiac silhouette is not enlarged. LUNGS: No infiltrates, effusions or pneumothorax. OTHER: No free air under the diaphragm. IMPRESSION: No acute cardiopulmonary pathology. EXAMINATION: CT BRAIN W/O DATE: 06/06/2024 17:28 INDICATION: Headache TECHNIQUE: Computed tomography (CT) of the head was performed without intravenous contrast. The dose-length product was 681.00 mGy-cm. CORD dose COMPARISON: No prior studies for comparison. FINDINGS: Normal brain parenchymal volume for age. Normal hope-white differentiation. No acute intracranial hemorrhage, infarction, mass or mass effect. No ventriculomegaly or midline shift. Midline sagittal images demonstrate a normal corpus callosum, craniovertebral junction and sella turcica. Basilar cisterns are patent. Paranasal sinuses and mastoids are pneumatized. No depressed skull fractures. IMPRESSION: 1. No acute intracranial abnormality. EXAMINATION: CTA brain carotid DATE: 06/06/2024 18:53 [facility] INDICATION: Dizziness. Gait disturbance. TECHNIQUE: Computed tomographic angiography (CTA) of the head was performed with 100 mL Omnipaque-350 intravenous contrast. CTA of the neck was performed with intravenous contrast. The dose-length product was 1257.44 mGy-cm. Maximum intensity projection and volume rendered 3D-reconstructions were created by the technologist on a separate workstation. COMPARISON: CT dated 06/06/2024 FINDINGS: HEAD CTA: The anterior, middle and posterior cerebral arteries are symmetric. No evidence for significant stenosis, occlusion or aneurysm. No vascular anomalies are identified. NECK CTA: Visualized aspects of the aorta are unremarkable. Great vessels are intact without evidence for significant stenosis. The internal and external carotid arteries are within normal limits without significant stenosis. Thyroid gland is unremarkable. No significant thoracic lymphadenopathy. Airway is patent. Visualized aspects of the lung parenchyma are unremarkable. There is 0% stenosis of the proximal right internal carotid artery relative to normal distal artery lumen diameter (NASCET criteria). There is 0% stenosis of the proximal left internal carotid artery relative to normal distal artery lumen diameter. IMPRESSION: 1: No significant vascular abnormality of the head or neck. Review of Systems Review of Systems: Dizziness, generalized weakness, poor per orally intake, chills. [facility], [facility] Past Medical History Medical History (Updated 06/06/24 @ 23:53 by Feng Garnica MD) History of hyperlipidemia History of hypertension History of diabetes mellitus Family History Family History (Updated 06/04/24 @ 11:06 by Raina Kerr CMA) Sibling Hypertension Renal disease Father Cerebrovascular accident Diabetes mellitus Hypertension Mother Diabetes mellitus Hypertension Social History Social History (Updated 06/04/24 @ 11:18 by Lennie Miranda MA) Smoking status: Former smoker Tobacco type: cigarettes Alcohol intake: current Drinks per week: 1 Substance use: current Substance use type: marijuana Other substance usage details: 06/04/24 Do You Feel Safe in your Home?: Yes Lack of Transportation: No Lack of Food: Sometimes True Current Housing: I Have Housing Concerned About Future Housing: No Difficulty Paying Gas/Electric Bills: No Difficulty Paying for Meds: YES Currently Unemployed: YES Education: Grade School Difficulty w/ Childcare or Family Care: No Gender identity (if verbalized by the patient): Male Spiritual care concerns: No Meds Home Medications and Allergies Home Medications ?Medication ?Instructions ?Recorded ?Confirmed ?Type blood sugar diagnostic (OneTouch #100 ea 06/04/24 06/06/24 Rx Ultra Test strips) blood-glucose meter (OneTouch #1 ea 06/04/24 06/06/24 Rx Verio Flex Start kit) blood-glucose meter,continuous #1 ea 06/04/24 06/06/24 Rx (Dexcom G7 Tempering Machine Operator) blood-glucose sensor (Dexcom G7 #9 06/04/24 06/06/24 Rx Sensor device) glucagon 1 mg/0.2 mL subcutaneous 1 mg (0.2 mL) subcut ONCE #0.4 mL 06/04/24 06/06/24 Rx auto-injector (Gvoke HypoPen 2-Pack) glucose 4 gram chewable tablet 16 g (4 x 4 gram) PO Q15M PRN 06/04/24 06/06/24 Rx (Dex4 Glucose) hypoglycemia #60 tabs insulin glargine 100 unit/mL (3 20 unit (0.2 mL) subcut QAM #3 mL 06/04/24 06/06/24 Rx mL) subcutaneous pen (Lantus Solostar U-100 Insulin) lancets 33 gauge (OneTouch Delica #100 ea 06/04/24 06/06/24 Rx Plus Lancet) urine glucose-ketones test #50 ea 06/04/24 06/06/24 Rx insulin lispro 100 unit/mL 5 unit (0.05 mL) subcut TIDWMEAL 06/05/24 06/06/24 Rx subcutaneous pen (Humalog KwikPen #15 mL (U-100) Insulin) lisinopril 5 mg tablet 5 mg PO DAILY 06/06/24 06/06/24 History rosuvastatin 10 mg tablet 10 mg PO DAILY 06/06/24 06/06/24 History Allergies Allergy/AdvReac Type Severity Reaction Status Date / Time No Known Allergies Allergy Verified 06/04/24 11:19 Vital Signs Vital Signs - 24 hr 06/06/24 16:19 06/06/24 18:09 06/06/24 19:46 Temperature 98.3 F Pulse Rate 99 93 80 Respiratory Rate 18 18 18 Blood Pressure 140/106 H 139/98 H 142/97 H Pulse Oximetry 100 100 100 Oxygen Delivery Room Air Exam Narrative: Patient is laying in a stretcher Const: General: comfortable, no acute distress, well developed, alert, awake and average body habitus Nutritional Appearance: average body habitus Orientation/consciousness: patient oriented x3 HENMT: Head: normal to inspection, normocephalic and atraumatic Ears: hearing grossly normal bilaterally Face/Nose/Sinus: normal facial exam Face and sinus: normal facial exam Eyes: General: appearance normal, both eyes and all related structures Pupils: Equal, round and reactive pupils present EOM: EOMs intact bilaterally Neck: Neck: full ROM, no lymphadenopathy and no JVD Thyroid: thyroid normal Lymphatic: no lymphadenopathy noted Resp: Effort & Inspection: normal respiratory effort and able to speak in complete sentences Auscultation: clear to auscultation bilaterally Cardio: Jugular venous distension: no JVD Rate: regular rate Rhythm: regular rhythm Heart sounds: S1 normal heart sound present and S2 normal heart sound present GI: GI Palp: Yes Soft to palpation and Yes No hepatosplenomegaly present : General: Yes deferred Skin: Rashes: no rashes Wounds: no wounds Neuro: General: patient oriented x3 and CN's II-XI intact bilaterally Cranial nerves: Yes CN's II-XII intact bilaterally and Yes Equal, round and reactive pupils present Cognition (Neuro): normal cognition Speech: normal speech Gait exam (Neuro): Unable to assess gait Motor exam (neuro): 5/5 motor strength present throughout Extrem: General: normal to inspection, full ROM, no joint enlargement and no pedal edema H&P: Results Labs Labs: Short CBC 06/06/24 Range/Units 16:35 WBC 9.4 (4.5-10.0) K/mm3 Hgb 15.5 (14.0-18.0) g/dL Hct 45.8 (42.0-52.0) % Plt Count 280 (150-375) k/mm3 BMP 06/06/24 16:35 Sodium 138 Potassium 3.6 Chloride 101 Carbon Dioxide 24 BUN 13 Creatinine 1.14 Glucose 249 H Calcium 10.0 Cardiac Enzymes 06/06/24 Range/Units 16:35 Total Creatine Kinase 170 (55-170) U/L Liver Function 06/06/24 Range/Units 16:35 Total Bilirubin 0.9 (0.2-1.3) mg/dL AST 27 (17-59) U/L ALT 19 (6-50) U/L Alkaline Phosphatase 88 (38-126) U/L Albumin 4.5 (3.5-5.1) g/dL Urine 06/06/24 Range/Units 18:00 Urine Color Dark yellow (Yellow) Urine Appearance Cloudy H (Clear) Urine pH 5.5 (5.0-9.0) Ur Specific [place] 1.023 (1.001-1.035) Urine Protein 2+ H (Negative) mg/dL Urine Glucose (UA) 2+ H (Negative) mg/dL Assessment and Plan Assessment and plan (1) Dizziness: Code(s): R42 - Dizziness and giddiness Status: Acute Assessment and Plan: Likely secondary to acute illness CTA of head and neck reviewed (2) Dehydration: Code(s): E86.0 - Dehydration Status: Acute Assessment and Plan: IV fluids (3) Diabetes mellitus: Qualifiers: Diabetes mellitus complication status: with hyperglycemia Diabetes mellitus type: type 1 Qualified Code(s): E10.65 - Type 1 diabetes mellitus with hyperglycemia Code(s): E11.9 - Type 2 diabetes mellitus without complications Status: Acute Assessment and Plan: Resume insulin Carb consistent diet (4) UTI (urinary tract infection): Code(s): N39.0 - Urinary tract infection, site not specified Status: Acute Assessment and Plan: Patient started on [facility] Advance Care Plan I have confirmed that the patient's Advanced Care Plan is present, code status is documented, or surrogate decision maker is listed in patient medical record.: Yes Medication Reconciliation I have utilized all available resources to obtain, update and review the patients current medications (includes all prescriptions, OTC, herbals, cannabis, and nutritional supplements).: Yes
[2024-06-06 20:51] LABS: Alanine Aminotransferase 14 U/L (6-50); Albumin Level 3.8 g/dL (3.5-5.1); Alkaline Phosphatase 81 U/L (38-126); Anion Gap 7 mmol/L (4-12); Aspartate Amino Transferase 21 U/L (17-59); Bilirubin,Total 0.8 mg/dL (0.2-1.3); Blood Urea Nitrogen 11 mg/dL (9-20); Calcium 8.8 mg/dL (8.4-10.2); Carbon Dioxide 25 mmol/L (22-30); Chloride 105 mmol/L (98-107); Estimated CRCL calculation 101 ml/min; Estimated Glomerular Filt Rate > 60; Glucose 198 mg/dL (65-110); Potassium 3.5 mmol/L (3.4-5.0); Sodium 137 mmol/L (137-145)
[2024-06-06] MEDS: ACETAMINOPHEN 500 MG TABLET 1000 MG PO (21:31)
[2024-06-06 22:00] VITALS: BP 145/99; PULSE 88; RESP 16; O2SAT 100
[2024-06-06 23:03] VITALS: BMI 29.5
[2024-06-06 23:06] LABS: Glucose Point of Care 231 mg/dl (65-105)
[2024-06-06 23:08] VITALS: BP 131/92; PULSE 96; RESP 16; TEMP 37.3; O2SAT 100
--- NOTE | 2024-06-06 23:41 | ADMGEN ---
This patient, Shade Ferris, was admitted to [facility] Surg Room 322-02. Patient/family oriented to hospital policies and general routines including ID bracelet, bed and alarms, visiting hours, pain management, procedures, bathroom and other care routines, personal items, smoking policy, room service/diet, and visiting hours. Information on how to activate the Rapid Response Team has been discussed. Patient/Family are encouraged to report perceived risks to care and to ask questions if they do not understand what they are told or what they should do.
[2024-06-07] MEDS: SODIUM CHLORIDE 0.9% IV 1,000 ML 125 ML IV CONT ×3 (00:57→16:51)
[2024-06-07 05:21] VITALS: BP 129/91; PULSE 87; RESP 16; TEMP 37.3; O2SAT 100
[2024-06-07 08:26] LABS: Glucose Point of Care 231 mg/dl (65-105)
[2024-06-07 08:40] LABS: Basophils Percent Auto 0.6 % (0.2-1.2); Eosinophils Percent Auto 0.2 % (0-4.4); Hematocrit 43.6 % (42.0-52.0); Hemoglobin 14.1 g/dL (14.0-18.0); Immature Granulocyte Absolute 0.02 K/mm3 (0.00-0.031); Immature Granulocyte Percent A 0.3 % (0-0.5); Lymphocytes Absolute Auto 2.83 K/mm3 (0.9-3.2); Lymphocytes Percent Auto 43.5 % (18.3-44.2); Mean Corpuscular HGB Conc 32.3 g/dl (32-36); Mean Corpuscular Hemoglobin 27.3 pg (26-34); Mean Corpuscular Volume 84.3 fl (80-100); Mean Platelet Volume 10.7 fl (7.4-10.4); Monocytes Absolute Auto 0.5 K/mm3 (0.1-0.6); Neutrophils Absolute Auto 3.1 K/mm3 (1.3-6.7); Neutrophils Percent Auto 47.4 % (45.5-73.1); Platelet Count Result 247 k/mm3 (150-375); Red Blood Count 5.17 M/mm3 (4.6-6.20); Red Cell Distribution Width 14.1 % (11.5-14.5); White Blood Count 6.5 K/mm3 (4.5-10.0)
[2024-06-07 09:02] LABS: Alanine Aminotransferase 16 U/L (6-50); Albumin Level 4.1 g/dL (3.5-5.1); Alkaline Phosphatase 82 U/L (38-126); Anion Gap 8 mmol/L (4-12); Aspartate Amino Transferase 27 U/L (17-59); Bilirubin,Total 1.1 mg/dL (0.2-1.3); Blood Urea Nitrogen 9 mg/dL (9-20); Calcium 9.2 mg/dL (8.4-10.2); Carbon Dioxide 26 mmol/L (22-30); Chloride 105 mmol/L (98-107); Estimated CRCL calculation 118 ml/min; Estimated Glomerular Filt Rate > 60; Glucose 221 mg/dL (65-110); Potassium 3.8 mmol/L (3.4-5.0); Sodium 139 mmol/L (137-145)
[2024-06-07] MEDS: INSULIN GLARGINE (*BKC) 100 UNITS/ML 20 UNITS SUB-Q (09:50)
[2024-06-07] MEDS: INSULIN ASPART (*BKC) 100 UNITS/ML SUB-Q ×3 (09:51→17:15)
[2024-06-07] MEDS: lisinopriL 5 MG TABLET PO (09:52)
--- NOTE | 2024-06-07 11:13 | PM.IMPN ---
Progress Note: A&P Assessment and Plan (1) FPC (current) use of insulin: Code(s): Z79.4 - FPC (current) use of insulin Status: Acute (2) Diabetes mellitus: Qualifiers: Diabetes mellitus complication status: with hyperglycemia Diabetes mellitus type: type 1 Qualified Code(s): E10.65 - Type 1 diabetes mellitus with hyperglycemia Code(s): E11.9 - Type 2 diabetes mellitus without complications Status: Acute (3) Dietary counseling and surveillance: Code(s): Z71.3 - Dietary counseling and surveillance Status: Acute (4) Dehydration: Code(s): E86.0 - Dehydration Status: Acute (5) UTI (urinary tract infection): Code(s): N39.0 - Urinary tract infection, site not specified Status: Acute (6) Dizziness: Code(s): R42 - Dizziness and giddiness Status: Acute Plan This is a 44-year-old male with past medical history significant for type 1 diabetes mellitus, hypertension, dyslipidemia. Patient presents to the emergency room due to 2 days of dizziness, poor per orally intake, chills. Preliminary workup was significant for urinalysis with 6-10 WBCs present. Patient with beta hydroxybutyrate of 1.86 anion gap is 13 bicarb is 25. Patient has been admitted for further evaluation management and treatment. (1) Dizziness: Code(s): R42 - Dizziness and giddiness Status: Acute Assessment and Plan: Likely secondary to acute illness CTA of head and neck reviewed Follow orthostatic test Possible due to dehydration (2) Dehydration: Code(s): E86.0 - Dehydration Status: Acute Assessment and Plan: IV fluids Uncontrolled Diabetes mellitus: Qualifiers: Diabetes mellitus complication status: with hyperglycemia Diabetes mellitus type: type 1 Qualified Code(s): E10.65 - Type 1 diabetes mellitus with hyperglycemia Code(s): E11.9 - Type 2 diabetes mellitus without complications Status: Acute Assessment and Plan: Increase Lantus to 30 units q.h.s., continue aspart 5 minute before each meal, Start insulin sliding scale a.c. q.h.s. Carb consistent diet Essential hypertension Continue lisinopril 5 mg daily p.o. (4) UTI (urinary tract infection): Code(s): N39.0 - Urinary tract infection, site not specified Status: Acute Assessment and Plan: Patient started on Rocephin Subjective Date/time seen: 06/07/24 11:13 Interval history: Blood pressure stable, also static tests negative, supine blood pressure 129/91, sitting 131/92. Patient denies headache, vision change, focal weakness, patient also denies palpitation. Patient felt dizziness after having a bath. Patient had diarrhea few days ago. Exam Narrative: GENERAL: Pleasant, in no acute distress. Well-nourished. - EYES: EOMI. Anicteric. - HENT: Moist mucous membranes. - LUNGS: Clear to auscultation bilaterally, no wheezing, rhonchi, or rales. - CARDIOVASCULAR: Regular rate and rhythm. No murmur. No JVD. - ABDOMEN: Soft, non-tender and non-distended. No palpable masses. - EXTREMITIES: No edema. Peripheral pulses 2+. Non-tender. - NEUROLOGIC: No focal neurological deficits. CN II-XII grossly intact. - PSYCHIATRIC: Awake, Alert and oriented x 3. Appropriate mood and affect. - SKIN: No rashes or lesions. Warm. - LYMPH: No cervical lymphadenopathy. Objective Data Vital Signs Vital Signs: Vital Signs - 24 hr 06/06/24 16:19 06/06/24 18:09 06/06/24 19:46 Temperature 98.3 F Pulse Rate 99 93 80 Respiratory Rate 18 18 18 Blood Pressure 140/106 H 139/98 H 142/97 H Pulse Oximetry 100 100 100 Oxygen Delivery Room Air 06/06/24 22:00 06/06/24 23:08 06/06/24 23:45 Temperature 99.1 F Pulse Rate 88 96 Respiratory Rate 16 16 Blood Pressure 145/99 H 131/92 H Pulse Oximetry 100 100 Oxygen Delivery Room Air 06/07/24 05:21 Temperature 99.1 F Pulse Rate 87 Respiratory Rate 16 Blood Pressure 129/91 H Pulse Oximetry 100 Oxygen Delivery Intake/Output Intake/Output: Intake & Output 06/04/24 06/05/24 06/06/24 06/07/24 23:59 23:59 23:59 23:59 Intake Total 2049 1107.9 Balance 2049 1107.9 Meds/Results Medications: Active Medications Generic Name Dose Route Start Last Admin Trade Name Freq PRN Reason Stop Dose Admin Sodium Chloride 1,000 mls @ 125 mls/hr 06/06/24 20:50 06/07/24 06:08 Normal Saline Iv IV CONT 125 mls/hr .Q8H ALYX Administration Insulin Aspart 5 units 06/07/24 08:00 06/07/24 09:51 Insulin Aspart (*Bkc) 100 Units/Ml 0.05 units/kg (5 units) 5 units SUB-Q Administration TIDWM ALYX Insulin Glargine 20 units 06/07/24 09:00 06/07/24 09:50 Insulin Glargine (*Bkc) 100 Units/Ml SUB-Q 20 units QAM ALYX Administration Lisinopril 5 mg 06/07/24 09:00 06/07/24 09:52 Lisinopril 5 Mg Tablet PO 5 mg DAILY ALYX Administration Miscellaneous Information 0 each 06/07/24 00:01 Glucose Tablets Nonform Sub With Gel??? XX 07/07/24 00:00 [facility] Non-Formulary Medication 16 gm 06/06/24 23:58 Glucose [Dex4 Glucose] PO Q15M PRN hypoglycemia Radiology Results: ITS Impressions Chest X-Ray 06/06/24 16:51 IMPRESSION: No acute cardiopulmonary pathology. Head CT 06/06/24 17:35 IMPRESSION: 1. No acute intracranial abnormality. Head/Neck CTA 06/06/24 18:53 IMPRESSION: 1: No significant vascular abnormality of the head or neck. Labs Labs: Laboratory Results - last 24 hr 06/06/24 06/06/24 06/06/24 16:22 16:35 17:08 WBC 9.4 RBC 5.56 Hgb 15.5 Hct 45.8 MCV 82.4 MCH 27.9 MCHC 33.8 RDW 13.9 Plt Count 280 MPV 10.6 H Immature Gran % (Auto) 0.2 Neut % (Auto) 60.1 Lymph % (Auto) 32.3 [place] % (Auto) 7.0 Eos % (Auto) 0.1 Baso % (Auto) 0.3 Lymph # (Auto) 3.04 [place] # (Auto) 0.7 H Eos # (Auto) 0.0 Baso # (Auto) 0.0 Abs Immat Gran (auto) 0.02 Absolute Neuts (auto) 5.7 Absolute Nucleated RBC 0.000 Nucleated RBC % 0.0 Sodium 138 Potassium 3.6 Chloride 101 Carbon Dioxide 24 Anion Gap 13 H BUN 13 Creatinine 1.14 Estim Creat Clear Calc 85 Estimated GFR > 60 Glucose 249 H POC Capillary Glucose 283 H Calcium 10.0 Total Bilirubin 0.9 AST 27 ALT 19 Alkaline Phosphatase 88 Total Creatine Kinase 170 Total Protein 9.0 H Albumin 4.5 Beta-Hydroxybutyrate/Acetoacetate 1.86 H Urine Color Urine Appearance Urine pH Ur Specific [place] Urine Protein Urine Glucose (UA) Urine Ketones Ur Blood (Man) Urine Nitrate Urine Bilirubin Urine Urobilinogen Add Ur Microanalysis Leukocyte Esterase Rfl Urine RBC Urine WBC Ur Squamous Epith Cells Urine Bacteria Urine Casts Hyaline Casts Urine Mucus Urine Opiates Screen Urine Methadone Screen Ur Barbiturates Screen Ur Phencyclidine Scrn Ur Amphetamine Screen U Benzodiazepines Scrn Urine Cocaine Screen U Cannabinoids Screen Influenza A (RT-PCR) Negative Influenza B (RT-PCR) Negative RSV (RT-PCR) Negative SARS-CoV-2 RNA (RT-PCR) Negative 06/06/24 06/06/24 06/06/24 18:00 20:37 23:03 WBC RBC Hgb Hct MCV MCH MCHC RDW Plt Count MPV Immature Gran % (Auto) Neut % (Auto) Lymph % (Auto) [place] % (Auto) Eos % (Auto) Baso % (Auto) Lymph # (Auto) [place] # (Auto) Eos # (Auto) Baso # (Auto) Abs Immat Gran (auto) Absolute Neuts (auto) Absolute Nucleated RBC Nucleated RBC % Sodium 137 Potassium 3.5 Chloride 105 Carbon Dioxide 25 Anion Gap 7 BUN 11 Creatinine 0.95 Estim Creat Clear Calc 101 Estimated GFR > 60 Glucose 198 H POC Capillary Glucose 231 H Calcium 8.8 Total Bilirubin 0.8 AST 21 ALT 14 Alkaline Phosphatase 81 Total Creatine Kinase Total Protein 7.0 Albumin 3.8 Beta-Hydroxybutyrate/Acetoacetate Urine Color Dark yellow Urine Appearance Cloudy H Urine pH 5.5 Ur Specific [place] 1.023 Urine Protein 2+ H Urine Glucose (UA) 2+ H Urine Ketones 3+ H Ur Blood (Man) Negative Urine Nitrate Negative Urine Bilirubin Negative Urine Urobilinogen 1.0 Add Ur Microanalysis Reviewed Leukocyte Esterase Rfl Negative Urine RBC 0-2 Urine WBC 6-10 H Ur Squamous Epith Cells Many H Urine Bacteria None seen Urine Casts >20 Hyaline Casts Present Urine Mucus Present Urine Opiates Screen Negative Urine Methadone Screen Negative Ur Barbiturates Screen Negative Ur Phencyclidine Scrn Negative Ur Amphetamine Screen Negative U Benzodiazepines Scrn Negative Urine Cocaine Screen Negative U Cannabinoids Screen Positive A Influenza A (RT-PCR) Influenza B (RT-PCR) RSV (RT-PCR) SARS-CoV-2 RNA (RT-PCR) 06/07/24 06/07/24 08:09 08:20 WBC 6.5 RBC 5.17 Hgb 14.1 Hct 43.6 MCV 84.3 MCH 27.3 MCHC 32.3 RDW 14.1 Plt Count 247 MPV 10.7 H Immature Gran % (Auto) 0.3 Neut % (Auto) 47.4 Lymph % (Auto) 43.5 [place] % (Auto) 8.0 Eos % (Auto) 0.2 Baso % (Auto) 0.6 Lymph # (Auto) 2.83 [place] # (Auto) 0.5 Eos # (Auto) 0.0 Baso # (Auto) 0.0 Abs Immat Gran (auto) 0.02 Absolute Neuts (auto) 3.1 Absolute Nucleated RBC 0.000 Nucleated RBC % 0.0 Sodium 139 Potassium 3.8 Chloride 105 Carbon Dioxide 26 Anion Gap 8 BUN 9 Creatinine 0.80 Estim Creat Clear Calc 118 Estimated GFR > 60 Glucose 221 H POC Capillary Glucose 231 H Calcium 9.2 Total Bilirubin 1.1 AST 27 ALT 16 Alkaline Phosphatase 82 Total Creatine Kinase Total Protein 8.0 Albumin 4.1 Beta-Hydroxybutyrate/Acetoacetate Urine Color Urine Appearance Urine pH Ur Specific [place] Urine Protein Urine Glucose (UA) Urine Ketones Ur Blood (Man) Urine Nitrate Urine Bilirubin Urine Urobilinogen Add Ur Microanalysis Leukocyte Esterase Rfl Urine RBC Urine WBC Ur Squamous Epith Cells Urine Bacteria Urine Casts Hyaline Casts Urine Mucus Urine Opiates Screen Urine Methadone Screen Ur Barbiturates Screen Ur Phencyclidine Scrn Ur Amphetamine Screen U Benzodiazepines Scrn Urine Cocaine Screen U Cannabinoids Screen Influenza A (RT-PCR) Influenza B (RT-PCR) RSV (RT-PCR) SARS-CoV-2 RNA (RT-PCR)
[2024-06-07 11:50] LABS: Glucose Point of Care 231 mg/dl (65-105)
[2024-06-07 14:00] VITALS: BP 156/93; PULSE 83; RESP 20; TEMP 36.2; O2SAT 100
[2024-06-07 16:59] LABS: Glucose Point of Care 140 mg/dl (65-105)
[2024-06-07 20:00] VITALS: PULSE 69; RESP 14; O2SAT 100
[2024-06-07 20:19] VITALS: BP 159/94; PULSE 69; RESP 14; TEMP 36.1; O2SAT 100
[2024-06-07 21:52] LABS: Glucose Point of Care 175 mg/dl (65-105)
[2024-06-08 05:00] VITALS: BP 139/90; PULSE 70; RESP 14; TEMP 36.4; O2SAT 99
[2024-06-08 08:00] VITALS: BP 140/85; PULSE 69; RESP 15; TEMP 36.6; O2SAT 100
[2024-06-08 08:01] LABS: Glucose Point of Care 198 mg/dl (65-105)
[2024-06-08 08:28] VITALS: BP 143/101; BP 150/95; PULSE 105; PULSE 66; RESP 15; TEMP 36.6; O2SAT 100
--- NOTE | 2024-06-08 09:19 | P.PNIM_ITS ---
Progress Note: A&P Assessment and Plan (1) longterm (current) use of insulin: Code(s): Z79.4 - longterm (current) use of insulin Status: Acute (2) Diabetes mellitus: Qualifiers: Diabetes mellitus complication status: with hyperglycemia Diabetes mellitus type: type 1 Qualified Code(s): E10.65 - Type 1 diabetes mellitus with hyperglycemia Code(s): E11.9 - Type 2 diabetes mellitus without complications Status: Acute (3) Dietary counseling and surveillance: Code(s): Z71.3 - Dietary counseling and surveillance Status: Acute (4) Dehydration: Code(s): E86.0 - Dehydration Status: Acute (5) UTI (urinary tract infection): Code(s): N39.0 - Urinary tract infection, site not specified Status: Acute (6) Dizziness: Code(s): R42 - Dizziness and giddiness Status: Acute Plan This is a 44-year-old male with past medical history significant for type 1 diabetes mellitus, hypertension, dyslipidemia. Patient presents to the emergency room due to 2 days of dizziness, poor per orally intake, chills. Preliminary workup was significant for urinalysis with 6-10 WBCs present. Patient with beta hydroxybutyrate of 1.86 anion gap is 13 bicarb is 25. Patient has been admitted for further evaluation management and treatment. (1) Dizziness: Code(s): R42 - Dizziness and giddiness Status: Acute Assessment and Plan: Likely secondary to acute illness CTA of head and neck reviewed Follow orthostatic test Possible due to dehydration (2) Dehydration: Code(s): E86.0 - Dehydration Status: Acute Assessment and Plan: IV fluids Uncontrolled Diabetes mellitus: Qualifiers: Diabetes mellitus complication status: with hyperglycemia Diabetes mellitus type: type 1 Qualified Code(s): E10.65 - Type 1 diabetes mellitus with hyperglycemia Code(s): E11.9 - Type 2 diabetes mellitus without complications Status: Acute Assessment and Plan: Increase Lantus to 30 units q.h.s., continue aspart 5 minute before each meal, Start insulin sliding scale a.c. q.h.s. Carb consistent diet Essential hypertension Continue lisinopril 5 mg daily p.o. (4) UTI (urinary tract infection): Code(s): N39.0 - Urinary tract infection, site not specified Status: Acute Assessment and Plan: Patient started on Rocephin Subjective Date/time seen: 06/08/24 09:19 Interval history: Blood pressure stable, Patient has no dizziness now. ucx pending Exam Narrative: GENERAL: Pleasant, in no acute distress. Well-nourished. - EYES: EOMI. Anicteric. - HENT: Moist mucous membranes. - LUNGS: Clear to auscultation bilateral ly, no wheezing, rhonchi, or rales. - CARDIOVASCULAR: Regular rate and rhyth m. No murmur. No JVD. - ABDOMEN: Soft, non-tender and non-dist ended. No palpable masses. - EXTREMITIES: No edema. Peripheral puls es 2+. Non-tender. - NEUROLOGIC: No focal neurological defi cits. CN II-XII grossly intact. - PSYCHIATRIC: Awake, Alert and oriented x 3. Appropriate mood and affect. - SKIN: No rashes or lesions. Warm. - LYMPH: No cervical lymphadenopathy. Objective Data Vital Signs Vital Signs: Vital Signs - 24 hr 06/07/24 09:52 06/07/24 14:00 06/07/24 20:00 Temperature 97.2 F L Pulse Rate 83 69 Respiratory Rate 20 14 Blood Pressure 156/93 H Pulse Oximetry 100 100 Oxygen Delivery Room Air Room Air 06/07/24 20:19 06/08/24 05:00 06/08/24 08:00 Temperature 96.9 F L 97.6 F 97.8 F Pulse Rate 69 70 69 Respiratory Rate 14 14 15 Blood Pressure 159/94 H 139/90 140/85 Pulse Oximetry 100 99 100 Oxygen Delivery 06/08/24 08:28 06/08/24 08:28 Temperature 97.8 F 97.8 F Pulse Rate 66 105 H Respiratory Rate 15 15 Blood Pressure 150/95 H 143/101 H Pulse Oximetry 100 100 Oxygen Delivery Intake/Output Intake/Output: Intake & Output 06/05/24 06/06/24 06/07/24 06/08/24 23:59 23:59 23:59 23:59 Intake Total 2049 3207.9 490 Balance 2049 3207.9 490 Meds/Results Medications: Active Medications Generic Name Dose Route Start Last Admin Trade Name Freq PRN Reason Stop Dose Admin Dextrose 12.5 gm 06/07/24 11:25 Dextrose 50% 25 Gm/50 Ml Syringe IV PUSH PRN PRN Hypoglycemia Protocol Glucagon 1 mg 06/07/24 11:25 Glucagon For Inj 1 Mg Vial IM PRN PRN Hypoglycemia Protocol Glucose 15 gm 06/07/24 11:25 Glucose Oral Gel 15 Gm Of Glucse In 37.5 Gm Tube PO PRN PRN Hypoglycemia Protocol Sodium Chloride 1,000 mls @ 125 mls/hr 06/06/24 20:50 06/07/24 16:51 Normal Saline Iv IV CONT 125 mls/hr .Q8H ALYX Administration Dextrose 1,000 mls @ 100 mls/hr 06/07/24 11:25 Dextrose 5% 1,000 Ml IVPB PRN PRN Hypoglycemia Protocol Insulin Aspart 5 units 06/07/24 08:00 06/07/24 17:15 Insulin Aspart (*Bkc) 100 Units/Ml 0.05 units/kg (5 units) 5 units SUB-Q Administration TIDWM REPLACED BY [facility] Insulin Aspart 2 - 5 units 06/07/24 17:00 06/07/24 17:01 Insulin Aspart (*Bkc) 100 Units/Ml SUB-Q Not Given TIDWM REPLACED BY [facility] Protocol Insulin Glargine 30 units 06/08/24 09:00 Insulin Glargine (*Bkc) 100 Units/Ml SUB-Q QAM REPLACED BY [facility] Lisinopril 5 mg 06/07/24 09:00 06/07/24 09:52 Lisinopril 5 Mg Tablet PO 5 mg DAILY ALYX Administration Radiology Results: ITS Impressions Chest X-Ray 06/06/24 16:51 IMPRESSION: No acute cardiopulmonary pathology. Head CT 06/06/24 17:35 IMPRESSION: 1. No acute intracranial abnormality. Head/Neck CTA 06/06/24 18:53 IMPRESSION: 1: No significant vascular abnormality of the head or neck. Labs Labs: Laboratory Results - last 24 hr 06/07/24 06/07/24 06/07/24 11:39 16:47 20:23 POC Capillary Glucose 231 H 140 H 175 H 06/08/24 07:28 POC Capillary Glucose 198 H
[2024-06-08] MEDS: lisinopriL 5 MG TABLET PO (09:43)
[2024-06-08] MEDS: INSULIN ASPART (*BKC) 100 UNITS/ML SUB-Q ×5 (09:44→18:29)
[2024-06-08] MEDS: INSULIN GLARGINE (*BKC) 100 UNITS/ML 30 UNITS SUB-Q (09:46)
[2024-06-08 11:50] LABS: Glucose Point of Care 217 mg/dl (65-105)
[2024-06-08 14:00] VITALS: BP 131/95; PULSE 86; RESP 16; TEMP 37.1; O2SAT 100
[2024-06-08 16:22] LABS: Glucose Point of Care 210 mg/dl (65-105)
[2024-06-08 20:00] VITALS: PULSE 71; RESP 14; O2SAT 100
[2024-06-08 21:30] VITALS: BP 140/100; PULSE 71; RESP 14; TEMP 36.3; O2SAT 100
[2024-06-08 22:54] LABS: Glucose Point of Care 110 mg/dl (65-105)
[2024-06-09 05:04] VITALS: BP 151/98; PULSE 80; RESP 12; TEMP 36.1; O2SAT 100
[2024-06-09 07:45] LABS: Glucose Point of Care 213 mg/dl (65-105)
[2024-06-09 08:00] VITALS: BP 138/95; PULSE 72; RESP 15; TEMP 36.6; O2SAT 100
--- NOTE | 2024-06-09 09:00 | P.PNIM_ITS ---
Progress Note: A&P Assessment and Plan (1) senior living (current) use of insulin: Code(s): Z79.4 - senior living (current) use of insulin Status: Acute (2) Diabetes mellitus: Qualifiers: Diabetes mellitus complication status: with hyperglycemia Diabetes mellitus type: type 1 Qualified Code(s): E10.65 - Type 1 diabetes mellitus with hyperglycemia Code(s): E11.9 - Type 2 diabetes mellitus without complications Status: Acute (3) Dietary counseling and surveillance: Code(s): Z71.3 - Dietary counseling and surveillance Status: Acute (4) Dehydration: Code(s): E86.0 - Dehydration Status: Acute (5) UTI (urinary tract infection): Code(s): N39.0 - Urinary tract infection, site not specified Status: Acute (6) Dizziness: Code(s): R42 - Dizziness and giddiness Status: Acute Plan This is a 44-year-old male with past medical history significant for type 1 diabetes mellitus, hypertension, dyslipidemia. Patient presents to the emergency room due to 2 days of dizziness, poor per orally intake, chills. Preliminary workup was significant for urinalysis with 6-10 WBCs present. Patient with beta hydroxybutyrate of 1.86 anion gap is 13 bicarb is 25. Patient has been admitted for further evaluation management and treatment. (1) Dizziness: Code(s): R42 - Dizziness and giddiness Status: Acute Assessment and Plan: Likely secondary to acute illness, including and dehydration because patient had diarrhea recently, also had UTI CTA of head and neck reviewed Follow orthostatic test: Negative of static test Possible due to dehydration Patient asymptomatic now (2) Dehydration: Code(s): E86.0 - Dehydration Status: Acute Assessment and Plan: IV fluids Corrected Uncontrolled Diabetes mellitus: Qualifiers: Diabetes mellitus complication status: with hyperglycemia Diabetes mellitus type: type 1 Qualified Code(s): E10.65 - Type 1 diabetes mellitus with hyperglycemia Code(s): E11.9 - Type 2 diabetes mellitus without complications Status: Acute Assessment and Plan: Increase Lantus to 30 units q.h.s., continue aspart 5 minute before each meal, Start insulin sliding scale a.c. q.h.s. Carb consistent diet Better controlled Continue the same medications on discharge Essential hypertension Increase lisinopril 5 mg daily p.o. to 20 mg daily p.o. (4) UTI (urinary tract infection): Code(s): N39.0 - Urinary tract infection, site not specified Status: Acute Assessment and Plan: Patient started on Rocephin Urine culture negative Changed to cefdinir for 5 more days Subjective Date/time seen: 06/09/24 09:00 Interval history: Blood pressure stable, Patient has no dizziness now. ucx no growth patient denies dizziness, chest pain, shortness a breath, dysuria. Patient afebrile blood pressure stable Exam Narrative: GENERAL: Pleasant, in no acute distress. Well-nourished. - EYES: EOMI. Anicteric. - HENT: Moist mucous membranes. - LUNGS: Clear to auscultation bilateral ly, no wheezing, rhonchi, or rales. - CARDIOVASCULAR: Regular rate and rhyth m. No murmur. No JVD. - ABDOMEN: Soft, non-tender and non-dist ended. No palpable masses. - EXTREMITIES: No edema. Peripheral puls es 2+. Non-tender. - NEUROLOGIC: No focal neurological defi cits. CN II-XII grossly intact. - PSYCHIATRIC: Awake, Alert and oriented x 3. Appropriate mood and affect. - SKIN: No rashes or lesions. Warm. - LYMPH: No cervical lymphadenopathy. Objective Data Vital Signs Vital Signs: Vital Signs - 24 hr 06/08/24 14:00 06/08/24 20:00 06/08/24 21:30 Temperature 98.7 F 97.4 F L Pulse Rate 86 71 71 Respiratory Rate 16 14 14 Blood Pressure 131/95 H 140/100 H Pulse Oximetry 100 100 100 Oxygen Delivery Room Air 06/09/24 05:04 Temperature 96.9 F L Pulse Rate 80 Respiratory Rate 12 Blood Pressure 151/98 H Pulse Oximetry 100 Oxygen Delivery Intake/Output Intake/Output: Intake & Output 06/06/24 06/07/24 06/08/24 06/09/24 23:59 23:59 23:59 23:59 Intake Total 2049 3207.9 1130 750 Balance 2049 3207.9 1130 750 Meds/Results Medications: Active Medications Generic Name Dose Route Start Last Admin Trade Name Freq PRN Reason Stop Dose Admin Dextrose 12.5 gm 06/07/24 11:25 Dextrose 50% 25 Gm/50 Ml Syringe IV PUSH PRN PRN Hypoglycemia Protocol Glucagon 1 mg 06/07/24 11:25 Glucagon For Inj 1 Mg Vial IM PRN PRN Hypoglycemia Protocol Glucose 15 gm 06/07/24 11:25 Glucose Oral Gel 15 Gm Of Glucse In 37.5 Gm Tube PO PRN PRN Hypoglycemia Protocol Sodium Chloride 1,000 mls @ 125 mls/hr 06/06/24 20:50 06/07/24 16:51 Normal Saline Iv IV CONT 125 mls/hr .Q8H ALYX Administration Dextrose 1,000 mls @ 100 mls/hr 06/07/24 11:25 Dextrose 5% 1,000 Ml IVPB PRN PRN Hypoglycemia Protocol Insulin Aspart 5 units 06/07/24 08:00 06/08/24 18:29 Insulin Aspart (*Bkc) 100 Units/Ml 0.05 units/kg (5 units) 5 units SUB-Q Administration TIDWM [facility] Insulin Aspart 2 - 5 units 06/07/24 17:00 06/08/24 18:29 Insulin Aspart (*Bkc) 100 Units/Ml SUB-Q 2 units TIDWM [facility] Administration Protocol Insulin Glargine 30 units 06/08/24 09:00 06/08/24 09:46 Insulin Glargine (*Bkc) 100 Units/Ml SUB-Q 30 units QAM ALYX Administration Lisinopril 5 mg 06/07/24 09:00 06/08/24 09:43 Lisinopril 5 Mg Tablet PO 5 mg DAILY ALYX Administration Radiology Results: ITS Impressions Chest X-Ray 06/06/24 16:51 IMPRESSION: No acute cardiopulmonary pathology. Head CT 06/06/24 17:35 IMPRESSION: 1. No acute intracranial abnormality. Head/Neck CTA 06/06/24 18:53 IMPRESSION: 1: No significant vascular abnormality of the head or neck. Labs Labs: Laboratory Results - last 24 hr 06/08/24 06/08/24 06/08/24 11:47 16:10 21:29 POC Capillary Glucose 217 H 210 H 110 H 06/09/24 07:42 POC Capillary Glucose 213 H
--- NOTE | 2024-06-09 09:11 | PM.DS ---
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: Code(s): Z79.4 - long-term (current) use of insulin Status: Acute (2) Diabetes mellitus: Qualifiers: Diabetes mellitus complication status: with hyperglycemia Diabetes mellitus type: type 1 Qualified Code(s): E10.65 - Type 1 diabetes mellitus with hyperglycemia Code(s): E11.9 - Type 2 diabetes mellitus without complications Status: Acute (3) Dietary counseling and surveillance: Code(s): Z71.3 - Dietary counseling and surveillance Status: Acute (4) Dehydration: Code(s): E86.0 - Dehydration Status: Acute (5) UTI (urinary tract infection): Code(s): N39.0 - Urinary tract infection, site not specified Status: Acute (6) Dizziness: Code(s): R42 - Dizziness and giddiness Status: Acute DS: Discharge Diagnosis Discharge Diagnosis (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: Code(s): Z79.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 Status: Acute (2) Diabetes mellitus: Qualifiers: Diabetes mellitus complication status: with hyperglycemia Diabetes mellitus type: type 1 Qualified Code(s): E10.65 - Type 1 diabetes mellitus with hyperglycemia Code(s): E11.9 - Type 2 diabetes mellitus without complications Status: Acute (3) Dietary counseling and surveillance: Code(s): Z71.3 - Dietary counseling and surveillance Status: Acute (4) Dehydration: Code(s): E86.0 - Dehydration Status: Acute (5) UTI (urinary tract infection): Code(s): N39.0 - Urinary tract infection, site not specified Status: Acute (6) Dizziness: Code(s): R42 - Dizziness and giddiness Status: Acute DS: Summary Hospital Course Hospital Course: Per H&P, This is a 44-year-old male with past medical history significant for type 1 diabetes mellitus, hypertension, dyslipidemia. Patient presents to the emergency room due to 2 days of dizziness, poor per orally intake, chills. Preliminary workup was significant for urinalysis with 6-10 WBCs present. Patient with beta hydroxybutyrate of 1.86 anion gap is 13 bicarb is 25. Patient has been admitted for further evaluation management and treatment. The following med issues have been addressed during hospitalization (1) Dizziness: Code(s): R42 - Dizziness and giddiness Status: Acute Assessment and Plan: Likely secondary to acute illness, including and dehydration because patient had diarrhea recently, also had UTI CTA of head and neck reviewed Follow orthostatic test: Negative of static test Possible due to dehydration Patient asymptomatic now (2) Dehydration: Code(s): E86.0 - Dehydration Status: Acute Assessment and Plan: IV fluids Corrected Uncontrolled Diabetes mellitus: Qualifiers: Diabetes mellitus complication status: with hyperglycemia Diabetes mellitus type: type 1 Qualified Code(s): E10.65 - Type 1 diabetes mellitus with hyperglycemia Code(s): E11.9 - Type 2 diabetes mellitus without complications Status: Acute Assessment and Plan: Increase Lantus to 30 units q.h.s., continue aspart 5 minute before each meal, Start insulin sliding scale a.c. q.h.s. Carb consistent diet Better controlled Continue the same medications on discharge Essential hypertension Increase lisinopril 5 mg daily p.o. to 20 mg daily p.o. (4) UTI (urinary tract infection): Code(s): N39.0 - Urinary tract infection, site not specified Status: Acute Assessment and Plan: Patient started on Rocephin Urine culture negative Changed to cefdinir for 5 more days Time Spent with Patient Time attestation: Total time spent providing and/or coordinating discharge services: Exam Narrative: GENERAL: Pleasant, in no acute distress. Well-nourished. - EYES: EOMI. Anicteric. - HENT: Moist mucous membranes. - LUNGS: Clear to auscultation bilaterally, no wheezing, rhonchi, or rales. - CARDIOVASCULAR: Regular rate and rhythm. No murmur. No JVD. - ABDOMEN: Soft, non-tender and non-distended. No palpable masses. - EXTREMITIES: No edema. Peripheral pulses 2+. Non-tender. - NEUROLOGIC: No focal neurological deficits. CN II-XII grossly intact. - PSYCHIATRIC: Awake, Alert and oriented x 3. Appropriate mood and affect. - SKIN: No rashes or lesions. Warm. - LYMPH: No cervical lymphadenopathy. DS: Data Data Completed and Pending Labs on day of discharge: Labs from last 24 hours 06/09/24 06/08/24 06/08/24 07:42 21:29 16:10 POC Capillary Glucose 213 H 110 H 210 H 06/08/24 11:47 POC Capillary Glucose 217 H Discharge Plan Discharge Attending physician on discharge: Amber Huang Discharging Clinician: Amber Huang Anticipated Discharge Date/Time: 06/09/24 10:11 Patient Disposition: Home, Self-Care Activity: as tolerated Diet: as tolerated, heart healthy and diabetic Patient Instructions: Antibiotic Form, Dehydration (DC), Urinary Tract Infection in Men (DC), Suicide Prevention (GEN) Patient Language: Brune[place] Stand Alone Forms: General Discharge Information Follow-up/Referrals: Dhruv De Souza MD [Primary Care Provider] - (Patient needs to see primary care doctor in 1 week) Discharge Medications: New insulin aspart U-100 [Novolog U-100 Insulin aspart] 100 unit/mL Solution 2 - 5 unit subcut TIDWM Qty: 10 1RF Protocol: Insulin Corrective Low-Dose Condition: glucose < 70 mg/dl Dose/Route: Follow Hypoglycemia Order Condition: glucose 70-200 mg/dl Dose/Route: No additional insulin Condition: glucose 201-250 mg/dl Dose/Route: 2 units sub-Q Condition: glucose 251-300 mg/dl Dose/Route: 3 units sub-Q Condition: glucose 301-350 mg/dl Dose/Route: 4 units sub-Q Condition: glucose 351-400 mg/dl Dose/Route: 5 units sub-Q Condition: glucose > 400 mg/dl Dose/Route: Call Protocol Text: *No Correction Dose at Bedtime* cefdinir 300 mg capsule 300 mg PO Q12H Qty: 10 0RF Continued (DME) DexGazeHawk 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 Misc See Rx Instructions .ROUTE .MEDSUPPLY Qty: 1 0RF Rx Instructions: Will use smartphone (DME) Dexcom G7 Sensor Device See Rx Instructions .ROUTE .MEDSUPPLY Qty: 9 3RF Rx Instructions: Use to monitor glcuose Gvoke HypoPen 2-Pack 1 mg/0.2 mL auto-injector 1 mg subcut ONCE Qty: 0.4 4RF Rx Instructions: may repeat once after 15 minutes if no response glucose [Dex4 Glucose] 4 gram tablet,chewable 16 g PO Q15M PRN (Reason: hypoglycemia) Qty: 60 1RF Rx Instructions: until symptoms of low blood sugar are controlled (DME) urine glucose-ketones test Strip See Rx Instructions .ROUTE .MEDSUPPLY Qty: 50 0RF Rx Instructions: As directed (DME) lancets [OneTouch Delica Plus Lancet] 33 gauge misc See Rx Instructions .ROUTE .MEDSUPPLY Qty: 100 0RF Rx Instructions: Check glcuose (DME) OneTouch Ultra Test Strip See Rx Instructions .ROUTE .MEDSUPPLY Qty: 100 0RF Rx Instructions: Check glucose 1-2 times a day (DME) blood-glucose meter [OneTouch Verio Flex Start] Kit See Rx Instructions .Route Qty: 1 0RF Rx Instructions: As directed rosuvastatin 10 mg tablet 10 mg PO DAILY insulin lispro [Humalog KwikPen Insulin] 100 unit/mL insulin pen 5 unit subcut TIDWMEAL MDD 33 Qty: 15 2RF Rx Instructions: Take 5 units premeal + SSI 150-200: 1 unit 201-250: 2 units 251-300: 3 units 301-350: 4 units 351-400: 5 units >401: 6 unit Changed lisinopril 5 mg tablet 20 mg PO DAILY Qty: 3 0RF insulin glargine [Lantus Solostar U-100 Insulin] 100 unit/mL (3 mL) insulin pen 30 unit subcut QAM Qty: 1 1RF Date of admission: 06/08/24 13:30 Primary Care Provider: Dhruv De Souza Admitting Provider: Feng Garnica V. Attending physician on admission: Feng Garnica V. Condition: Stable
[2024-06-09] MEDS: INSULIN ASPART (*BKC) 100 UNITS/ML SUB-Q ×2 (10:24→10:25)
[2024-06-09] MEDS: lisinopriL 20 MG TABLET PO (10:24)
[2024-06-09] MEDS: INSULIN GLARGINE (*BKC) 100 UNITS/ML 30 UNITS SUB-Q (10:26)
[2024-06-09 11:03] VITALS: BP 149/96; PULSE 74; RESP 15; TEMP 36.6; O2SAT 100
[2024-06-09 11:04] VITALS: BP 142/110; PULSE 94; RESP 15; TEMP 36.6; O2SAT 100
[2024-06-09 11:51] LABS: Glucose Point of Care 235 mg/dl (65-105)
--- NOTE | 2024-06-09 13:30 | PC.NURSE ---
Pt wanted to do insulin on his own since he had DC orders.
--- OUTSIDE RECORDS SUMMARY | 2024-06-13 04:07 | XMS_ITS | Continuity of Care Document ---
Author Organization [facility] Address [address] [place] [address] Phone Care Team Providers Care Data Analysis Assistant Name Role Phone Dhruv De Souza MD Unavailable Unavailable Allergies, Adverse Reactions, Alerts Substance Reaction Status Criticality No Known Allergies Active No Inform ation Medications Medication Instructions Dosage Effective Dates (start - stop) Status Comments rosuvastatin 10 mg tablet take 1 tablet by oral route every day 10 MG - Active lisinopril 5 mg tablet take 1 tablet by oral route every day 5 MG - Active Humalog KwikPen U-200 Insulin 200 unit/mL (3 mL) subcutaneous inject by subcutaneous route per prescriber's instructions. Insulin dosing requires individualization. 0.00 - Active 20 units SC before each meal Lantus Solostar U-100 Insulin 100 unit/mL (3 mL) subcutaneous pen inject by subcutaneous route as per insulin protocol 0.00 - Active 30 units SC daily Procedures Procedure Date OFFICE/OUTPATIENT VISIT, EST OFFICE/OUTPATIENT VISIT, EST OFFICE/OUTPATIENT VISIT, EST PREV VISIT, NEW, AGE 40-64 Advance Directives Directive Yes / No Effective Date File Name No Information Encounters Encounter Description Practice Location Reason(s) For Visit Diagnoses Date Provider Providers Copied on Encounter OFFICE/OUTPA TIENT VISIT, EST [facility], [address] [place], [place], [id number], [place] tel:[phone] [facility] DM (chief complaint) HLP (chief complaint) weight loss1 (chief complaint) Mixed hyperlipidemiaType 1 diabetes mellitus with diabetic nephropathyAbnormal weight loss Dec- 2-202 4 Ap Bartlett. [address], [place], [place], [address] , [place]. tel:[phone] OFFICE/OUTPA TIENT VISIT, [facility], [address], [place], [place], [address], [place] tel:[phone] [facility] DM (chief complaint) HLP (chief complaint) proteinuri a1 (chief complaint) Type 1 diabetes mellitus with diabetic nephropathyMixed hyperlipidemia 4 Ap Bartlett. [address], [place], [place], [address] , [place]. tel:[phone] OFFICE/OUTPA TIENT VISIT, [facility], [address], [place], [place], [address], [place] tel:[phone] [facility] DM (chief complaint) Type 1 diabetes mellitus without complications 4 Ap Bartlett. [address], [place], [place], [address] , [place]. [phone] PREV VISIT, NEW, AGE 40-64 [facility], [address], [place], [place], [address], [place] tel:[phone] [facility] physical (chief complaint) Encounter for general adult medical examination without abnormal findings 4 Ap Bartlett. [address], [place], [place], [address] , [place]. tel:[phone] Family History Family Member Type Diagnosis Age At Onset Father Problem CVA 65 Sister Problem Alive and well Brother Problem Hypertension Father Problem DM Father Problem HTN Mother Problem HTN Mother Problem type I DM Brother Problem Renal disease Payers Payer name Insurance type Covered green party ID Authoriza tion(s) No Information Social History Type Description Quantity Date Captured Comments Alcohol Use Details beer Caffeine Use Details Unknown Tobacco Use Status Current non-smoker Smoking Status Never smoker Sex Male Vital Signs Date / Time: Height Weight BMI Pulse Rate Blood Pressure Temperature Respiratory Rate Body Surface Area Head Circumference BMI percentile Pulse Ox Inhaled Ox 10:56 AM 73.50 in 241.60 lbs 31.4 4 kg/m eter (2) 76 /min 132/88 mm[Hg] 98.4 F 16 /min Chief Complaint And Reason For Visit From encounter dated '04/22/2024 10:15'. DM (chief complaint). Description: Pt has type I DM. Pt is on lantus and humalog and his glucose isaround 150s. Pt denies any polyuria polydipsia . HLP (chief complaint). Description: Pt has HLP pt takes crestor Pt denies any myalgia weight loss1 (chief complaint). Description: Pt has been losing weight intentionally with diet and exercise. Pt denies any nausea, vomiting, early satiety, change of bowel Plan Of Treatment Date Type Action Status Referral Ordered: Endocrinology, Diabetes and Metabolism (related to Type 1 diabetes mellitus with diabetic nephropathy) ordered Referral Ordered: Referrals: Endocrinology, Diabetes and Metabolism. Evaluate and treat ordered Referral Ordered: Lucian Montoya -Allopathic & Osteopathic Physicians : Internal Medicine (related to Type 1 diabetes mellitus without complications) ordered Referral Referred To: Lucian Montoya [address] [place], [place], [phone] Ordered: Referrals: Allopathic & Osteopathic Physicians : Internal Medicine. Lucian Montoya. Evaluate and treat ordered Referral Ordered: Erma Webb -Allopathic & Osteopathic Physicians : Internal Medicine : Endocrinology, Diabetes & Metabolism (related to Encounter for general adult medical examination without abnormal findings) ordered Referral Referred To: Erma Webb [id number] [facility]
[address] [place], [place] [id number] Ordered: Referrals: Allopathic & Osteopathic Physicians : Internal Medicine : Endocrinology, Diabetes & Metabolism. Erma Webb. Evaluate and treat ordered Appointment Shade Ferris BOOKED History Of Present Illness Encounter Date Complaint History Of Prese nt Illness weight loss1 Pt has been losi ng weight intentionally with diet and exercise. Pt denies any nausea, vomiting, early satiety, change of bowel HLP Pt has HLP pt stephanie motta Pt denies any myalgia DM Pt has type I DM . Pt is on lantus and humalog and his glucose is around 150s. Pt denies any polyuria polydipsia . proteinuria1 Pt has proteinur ia Pt denies any urinary symptoms HLP Pt has HLP pt is not on any diet DM Pt has type I DM His glucose was very high. pt did run out of insulin when he did the lab work. His A1c is high also Pt denies any polyuria polydipsia Pt has ivonne with endo in 3 months pt states that his glucose is just over 200 while on lantus and humalog. Pt denies any neuropathy DM Pt has type I DM pt is taking lantus and humalog pre meals Pt states that his glucose is around 140s Pt denies any polyuria, polydipsia Pt did not do lab yet or followed up with endo Pt currently uses 20 units lantus daily and 20 units humalog pre meals. Pt is out of insulin for several days Pt needs insulin refilled. Pt denies any neuropathy symptoms. physical PT needs annual physical pt has type I DM for long time Pt has not seen regular MD or any endo for long time Pt has been getting insulin from urgent care or ED .Pt run out of insulin recently and he went to ER and his glucose was 260 and he was restarted on lantus and humalog insulin .Pt states tat his glucose is around 200 at home Pt denies any neuropathy symptoms Pt denies any polyuria polydipsia Pt denies any chest pain or headache. Instructions Date Instruction Additional Infor mation No Information Assessments Type Assessment Date assessment Mixed hyperlipidemia assessment Type 1 diabetes mellitus with di abetic nephropathy assessment Abnormal weight loss Mental Status Date Cognitive Assessment Orientation - [place] ed to time, place, person, situation.
--- OUTSIDE RECORDS SUMMARY | 2024-06-13 04:15 | XMS_ITS | Continuity of Care Document ---
Author Organization [facility] Address [address] [place] [address] Phone Care Team Providers Care Ergonomics Engineer Name Role Phone Dhruv De Souza MD [...] Copied on Encounter OFFICE/OUTPA TIENT VISIT, EST [facility], [address] [place], [place], [address], [place] tel:[phone] [facility] DM (chief complaint) HLP (chief complaint) weight loss1 (chief complaint) Mixed hyperlipidemiaType 1 diabetes mellitus with diabetic nephropathyAbnormal weight loss Dec- 2-202 4 Ap Bartlett. [address], [place], [place], [address] , [place]. tel:[phone] OFFICE/OUTPA TIENT VISIT, [facility], [address], [place], [place], [address], [place] tel:[phone] [facility] DM (chief complaint) HLP (chief complaint) proteinuri a1 (chief complaint) Type 1 diabetes mellitus with diabetic nephropathyMixed hyperlipidemia 4 Ap Bartlett. [address], [place], [place], [address] , [place]. tel:[phone] OFFICE/OUTPA TIENT VISIT, [facility], [address], [place], [place], [address], [place] tel:[phone] [facility] DM (chief complaint) Type 1 diabetes mellitus without complications 4 Ap Bartlett. [address], [place], [place], [address] , [place]. [phone] PREV VISIT, NEW, AGE 40-64 [facility], [address], [place], [place], [address], [place] tel:[phone] [facility] physical (chief complaint) Encounter for general adult medical examination without abnormal findings 4 Ap Bartlett. [address], [place], [place], [address] , [place]. tel:[phone] Family History Family Member Type Diagnosis Age [...] ordered Referral Referred To: Lucian Montoya [address] [place], [place], [phone] Ordered: Referrals: Allopathic & Osteopathic Physicians : Internal Medicine. Lucian Montoya. Evaluate and treat ordered Referral Ordered: Erma Webb -Allopathic & Osteopathic Physicians : Internal Medicine : Endocrinology, Diabetes & Metabolism (related to Encounter for general adult medical examination without abnormal findings) ordered Referral Referred To: Erma Webb [address] [facility]
[address], [place] [id number] Ordered: Referrals: Allopathic & Osteopathic Physicians : Internal Medicine : Endocrinology, Diabetes & Metabolism. Erma Webb. Evaluate and treat ordered Appointment Shade Ferris BOOKED History Of Present Illness Encounter Date Complaint History Of Prese nt Illness DM Pt has type I DM . Pt is on lantus and humalog and his glucose is around 150s. Pt denies any polyuria polydipsia . HLP Pt has HLP pt stephanie motta Pt denies any myalgia weight loss1 Pt has been losi ng weight intentionally with diet and exercise. Pt denies any nausea, vomiting, early satiety, change of bowel DM Pt has type I DM His glucose was very high. pt did run out of insulin when he did the lab work. His A1c is high also Pt denies any polyuria polydipsia Pt has ivonne with endo in 3 months pt states that his glucose is just over 200 while on lantus and humalog. Pt denies any neuropathy HLP Pt has HLP pt is not on any diet proteinuria1 Pt has proteinur ia Pt denies any urinary symptoms DM Pt has type I DM pt [...] Mental Status Date Cognitive Assessment Orientation - [place] ed to time, place, person, situation.
--- OUTSIDE RECORDS SUMMARY | 2024-06-13 04:29 | XMS_ITS | Continuity of Care Document ---
Author Organization [facility] Address [address] [facility] [place] [address] Phone Care Team Providers Care Delinquent Account Clerk Name Role Phone Dhruv De Souza MD [...] Copied on Encounter OFFICE/OUTPA TIENT VISIT, EST [facility], [address] [place], [place], [address], [place] tel:[phone] [facility] DM (chief complaint) HLP (chief complaint) weight loss1 (chief complaint) Mixed hyperlipidemiaType 1 diabetes mellitus with diabetic nephropathyAbnormal weight loss Dec- 2-202 4 Ap Bartlett. [address], [place], [place], [address] , [place]. tel:[phone] OFFICE/OUTPA TIENT VISIT, [facility], [address], [place], [place], [address], [place] tel:[phone] [facility] DM (chief complaint) HLP (chief complaint) proteinuri a1 (chief complaint) Type 1 diabetes mellitus with diabetic nephropathyMixed hyperlipidemia 4 Ap Bartlett. [address], [place], [place], [address] , [place]. tel:[phone] OFFICE/OUTPA TIENT VISIT, [facility], [address], [place], [place], [address], [place] tel:[phone] [facility] DM (chief complaint) Type 1 diabetes mellitus without complications 4 Ap Bartlett. [address], [place], [place], [address] , [place]. [phone] PREV VISIT, NEW, AGE 40-64 [facility], [address], [place], [place], [address], [place] tel:[phone] [facility] physical (chief complaint) Encounter for general adult medical examination without abnormal findings 4 Ap Bartlett. [address], [place], [place], [address] , [place]. tel:[phone] Family History Family Member Type Diagnosis Age At Onset Father Problem CVA 65 Sister Problem Alive and well Brother Problem Hypertension Father Problem DM Father Problem HTN Mother Problem HTN Mother Problem type I DM Brother Problem Renal disease Payers Payer name Insurance type Covered republican ID Authoriza tion(s) No Information Social History [...] ordered Referral Referred To: Lucian Montoya [address] [place], [place], [phone] Ordered: Referrals: Allopathic & Osteopathic Physicians : Internal Medicine. Lucian Montoya. Evaluate and treat ordered Referral Ordered: Erma Webb -Allopathic & Osteopathic Physicians : Internal Medicine : Endocrinology, Diabetes & Metabolism (related to Encounter for general adult medical examination without abnormal findings) ordered Referral Referred To: Erma Webb [address] [facility]
[address], [place] [id number] Ordered: Referrals: Allopathic & Osteopathic Physicians : [...] Mental Status Date Cognitive Assessment Orientation - [place] ed to time, place, person, situation.
== END 2024-06-09 13:25 | disposition home or self-care (01) | DRG 690 ==
LOC: ANHED 21:15 → ANH3MEDSUR 21:58
PROVIDERS: Emergency Medicine; Registered Nurse; Admitting Provider Internal Medicine; Emergency Provider Physician Assistant; PCP Emergency Medicine; Visit Provider Hospitalist
DX: N39.0 Urinary tract infection, site not specified (principal); E86.0 Dehydration; R42 Dizziness and giddiness; I10 Essential (primary) hypertension; E78.5 Hyperlipidemia, unspecified; E10.65 Type 1 diabetes mellitus with hyperglycemia; Z87.891 Personal history of nicotine dependence; Z79.4 Long term (current) use of insulin
CPT/HCPCS: 36415; 70450; 70496; 70498; 71046; 80053; 80307; 81001; 82010; 82550; 82948; 85025; 87086; 87637; 93005; 96361; 96365; 96375; 99285; A9270; G0378; J0696; J1815; J2405; J7030; Q9967

== ENCOUNTER 2024-07-08 16:06 | Emergency (ER) | payer OTHER, SELFPAY ==
--- NOTE | 2024-07-08 16:08 | ED_ITS ---
HPI - URI/Sore Throat General Chief Complaint: Upper Respiratory Infection Stated Complaint: Flu Symptoms Time Seen by Provider: 07/08/24 16:15 Source: patient Mode of arrival: ambulatory Limitations: no limitations History of Present Illness HPI Narrative: Shade is a 44-year-old male patient presenting to the clinic today with complaints of possible flu-like symptoms. He reports he has got a runny nose, cough, sore throat, congestion, and feeling feverish x1 day. He reports symptoms started last night. Denies any chest pain or shortness of breath. MD elicited complaint: fever, cough and nasal congestion Related Data Home Medications ?Medication ?Instructions ?Recorded ?Confirmed ?Last Taken ?Type rosuvastatin 10 mg tablet 10 mg PO DAILY 06/06/24 07/08/24 Unknown History Allergies Allergy/AdvReac Type Severity Reaction Status Date / Time No Known Allergies Allergy Verified 07/08/24 16:12 Review of Systems Review of Systems: Pertinent positives per HPI. Patient denies any fever, chills, rash, headache, visual changes, dizziness, cough, shortness of breath, chest pain, palpitations, nausea, vomiting, diarrhea, constipation, abdominal pain, or any urinary issues. [facility] Past Medical History Medical History History of hyperlipidemia History of hypertension History of diabetes mellitus Family History Family History Sibling Hypertension Renal disease Father Cerebrovascular accident Diabetes mellitus Hypertension Mother Diabetes mellitus Hypertension Social History Social History Smoking status: Former smoker Tobacco type: cigarettes Alcohol intake: current Drinks per week: 1 Substance use: current Substance use type: marijuana Other substance usage details: 06/04/24 Do You Feel Safe in your Home?: Yes Lack of Transportation: No Lack of Food: Sometimes True Current Housing: I Have Housing Concerned About Future Housing: No Difficulty Paying Gas/Electric Bills: No Difficulty Paying for Meds: YES Currently Unemployed: YES Education: Grade School Difficulty w/ Childcare or Family Care: No Gender identity (if verbalized by the patient): Male Spiritual care concerns: No Comments At the time of my signature, I reviewed and agree with the nursing past medical, surgical, social, and family history. There is no relevant family history pertinent to the patient complaint. Exam Narrative: General: Well-developed, well nourished, in no apparent distress Head: Normocephalic, atraumatic Eyes: Pupils equally round and reactive to light bilaterally, EOM intact, sclera and conjunctive clear, no discharge, lids normal Ears: TMs intact and clear, ear canals clear, no drainage, grossly hearing normal. Nose: Nares patent, clear nasal discharge, no inflammation, no sinus tenderness. Mouth: Oral pharynx red without lesions or masses, good dentition, MMM. Neck: Supple, trachea midline, no enlargement of anterior or posterior cervical nodes, no thyroid masses or goiter palpable. Cardio: Regular rate and rhythm, s1 and s2 normal, no murmur appreciated. Resp: Clear to auscultation bilaterally, no rhonchi, rales, wheezing or rubs Course Course Emergency Course: Portions of this record may have been created with voice recognition software. Level of Care: Express Care Visit Vital Signs Vital signs: Vital Signs Temperature 36.9 C 07/08/24 16:10 Pulse Rate 107 H 07/08/24 16:10 Respiratory Rate 16 07/08/24 16:10 Blood Pressure 146/98 H 07/08/24 16:10 Pulse Oximetry 100 07/08/24 16:10 Oxygen Delivery Room Air 07/08/24 16:10 Temperature 36.9 C 07/08/24 16:10 Pulse Rate 107 H 07/08/24 16:10 Respiratory Rate 16 07/08/24 16:10 Blood Pressure 146/98 H 07/08/24 16:10 Pulse Oximetry 100 07/08/24 16:10 Oxygen Delivery Room Air 07/08/24 16:10 Vital signs reviewed MDM - URI/Sore Throat MDM Narrative Medical decision making narrative: At the time of visit patient is resting comfortably on the exam table. Patient appears to be nontoxic. Labs: Influenza testing was negative in the clinic today. Plan: I suspect patient has URI/pharyngitis/viral syndrome. Supportive measures were discussed with the patient and they voiced understanding discharge instructions and agrees to treatment plan. Return precautions reviewed Differential Diagnosis Differential diagnosis: Likely upper respiratory infection, otitis media, sinusitis, viral infection, bronchitis, influenza, pharyngitis and other (COVID) Lab Data Labs: Lab Results 07/08/24 Range/Units 16:34 POC Influenza A Ag Negative (Negative) POC Influenza B Ag Negative (Negative) Discharge Plan Discharge Clinical Impression: Viral infection Upper respiratory infection Qualifiers: URI type: unspecified URI Qualified Code(s): J06.9 - Acute upper respiratory infection, unspecified Pharyngitis Qualifiers: Pharyngitis/tonsillitis etiology: unspecified etiology Qualified Code(s): J02.9 - Acute pharyngitis, unspecified Patient Disposition: Home, Self-Care Condition: Stable Instructions: Antibiotic Form, Pharyngitis (ED), Viral Syndrome (ED), Cold Symptoms (ED) Additional Instructions: Influenza testing was negative in the clinic today. May take Coricidin HBP for cold/flu symptoms Keep a tight control in your blood sugar. Increase fluids and stay well hydrated Tylenol/motrin for pain/fever Flonase and OTC antihistamines as directed Vicks vapor rub to open sinuses Sinus rinses for congestion Cepacol spray, cough drops, throat lozenges, warm tea with honey/lemon, gargle salt water to soothe throat BRAT diet for diarrhea Clear liquids x 24 hours then advance as tolerated for nausea/vomiting Go to the ED if you develop a worsening in your condition- high fever not controlled by Tylenol or Motrin, dehydration, weakness, lethargy, shortness of breath, or chest pain. Follow up with your PCP in 3-5 days if symptoms persist. 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 See Rx Instructions .ROUTE .MEDSUPPLY Qty: 1 0RF Rx Instructions: Will use smartphone [employer] 2-Pack 1 mg/0.2 mL auto-injector 1 mg subcut ONCE Qty: 0.4 4RF Rx Instructions: may repeat once after 15 minutes if no response (DME) urine glucose-ketones test Strip See Rx Instructions .ROUTE .MEDSUPPLY Qty: 50 0RF Rx Instructions: As directed (DME) lancets [OneTouch Delica Plus Lancet] 33 gauge misc See Rx Instructions .ROUTE .MEDSUPPLY Qty: 100 0RF Rx Instructions: Check glcuose (DME) OneTouch Ultra Test Strip See Rx Instructions .ROUTE .MEDSUPPLY Qty: 100 0RF Rx Instructions: Check glucose 1-2 times a day (DME) blood-glucose meter [OneTouch Verio Flex Start] Kit See Rx Instructions .Route Qty: 1 0RF Rx Instructions: As directed rosuvastatin 10 mg tablet 10 mg PO DAILY lisinopril 5 mg tablet 20 mg PO DAILY Qty: 3 0RF insulin glargine [Lantus Solostar U-100 Insulin] 100 unit/mL (3 mL) insulin pen 30 unit subcut QAM Qty: 1 1RF insulin lispro [Humalog KwikPen Insulin] 100 unit/mL insulin pen 5 unit subcut TIDWMEAL MDD 33 Qty: 15 2RF Rx Instructions: Take 5 units premeal + SSI 150-200: 1 unit 201-250: 2 units 251-300: 3 units 301-350: 4 units 351-400: 5 units >401: 6 unit (DME) Dexcom G7 Sensor Device See Rx Instructions .ROUTE .MEDSUPPLY Qty: 9 3RF Rx Instructions: Use to monitor glcuose Follow-up/Referrals: PHYSICIAN,[employer] [Primary Care Provider] - Stand Alone Forms: Work/School Release IP Time of Disposition: 16:36 Quality NIHSS Nursing Documentation ED NIHSS nursing documentation: reviewed/agree
[2024-07-08 16:10] VITALS: BP 146/98; PULSE 107; RESP 16; TEMP 36.9; O2SAT 100
[2024-07-08 16:36] LABS: EDINFLUASCREEN Negative (Negative); EDINFLUBSCREEN Negative (Negative)
== END 2024-07-08 16:44 | disposition home or self-care (01) ==
PROVIDERS: Emergency Provider Nurse Practitioner Family
DX: B34.9 Viral infection, unspecified (principal); J06.9 Acute upper respiratory infection, unspecified; J02.9 Acute pharyngitis, unspecified; Z87.891 Personal history of nicotine dependence; I10 Essential (primary) hypertension; E11.9 Type 2 diabetes mellitus without complications; E78.5 Hyperlipidemia, unspecified
CPT/HCPCS: 87804; 99212; G0463